=== PATIENT | female | born 1935 | race Caucasian/White ===

== ENCOUNTER 2016-12-07 19:01 | Inpatient (IN) | payer MEDICARE, BC ==
[2016-12-07] MEDS ORDERED: SODIUM CHLORIDE 0.9% 1,000 ML IV SCH (22:30)
[2016-12-07 22:53] LABS: Basophils % (A) 0 %; CH 26.7; CHCM 31.2; Eosinophils % (A) 0 %; HCT 29.9 % (34.0-46.0); HDW 2.43; HGB 9.4 gm/dL (11.4-16.0); Hypochromasia Slight; Luc # (Auto) 0.15; Luc % (Auto) 2; Lymphocytes % (A) 10 %; MCH 26.9 pg (25.0-35.0); MCHC 31.3 g/dL (31.0-37.0); Monocytes # (A) 0.5 k/uL (0-1.0); Monocytes % (A) 4 %; Neutrophils # (A) 8.6 k/uL (1.3-7.7); Neutrophils % (A) 84 %; RBC 3.48 m/uL (3.80-5.40); RDW 15.4 % (11.5-15.5); WBC 10.3 k/uL (3.8-10.6); WBC (Perox) 10.09
[2016-12-07] MEDS ORDERED: ALPRAZolam 0.25 MG TAB PO PRN (22:54)
[2016-12-07] MEDS ORDERED: NALOXONE 0.4 MG/ML 1 ML VIAL IV PRN (22:54)
[2016-12-07] MEDS ORDERED: HYDROcodone/APAP 5-325MG 1 EACH TAB PO PRN (22:54)
[2016-12-07] MEDS ORDERED: HYDROmorphone 1 MG/ML 1 ML SYRINGE IVP PRN (22:55)
[2016-12-07] MEDS ORDERED: cloNIDine HCL 0.1 MG TAB PO PRN (22:57)
[2016-12-07] MEDS ORDERED: hydrALAZINE HCL 20 MG/ML 1 ML VIAL IVP PRN (22:57)
[2016-12-07 23:02] LABS: ALT 20 U/L (9-52); AST 20 U/L (14-36); Alkaline Phosphatase 56 U/L (38-126); Anion Gap 10 mmol/L; Blood Urea Nitrogen 13 mg/dL (7-17); Calcium 8.4 mg/dL (8.4-10.2); Carbon Dioxide 17 mmol/L (22-30); Chloride 102 mmol/L (98-107); Glucose 90 mg/dL (74-99); Non-African American GFR(MDRD) >60 (>60 ml/min/1.73 sqM); Potassium 3.6 mmol/L (3.5-5.1); Sodium 129 mmol/L (137-145); Total Bilirubin 1.3 mg/dL (0.2-1.3); Total Protein 5.3 g/dL (6.3-8.2)
[2016-12-07] MEDS ORDERED: SODIUM CHLORIDE 0.9% 500 ML IV ONE (23:17)
[2016-12-07] MEDS ORDERED: ACETAMINOPHEN TAB 325 MG TAB PO PRN (23:39)
[2016-12-07] MEDS: METOPROLOL TARTRATE 50 MG TAB PO SCH (23:45)
[2016-12-07] MEDS: SODIUM CHLORIDE 0.9% 1,000 ML IV SCH (23:46)
[2016-12-07] MEDS: amLODIPine 5 MG TAB PO SCH (23:46)
[2016-12-07] MEDS: MELATONIN 3 MG TABLET PO SCH (23:47)
[2016-12-08 08:13] LABS: Basophils % (A) 0 %; CH 26.4; CHCM 31.4; Eosinophils % (A) 0 %; HCT 27.7 % (34.0-46.0); HDW 2.56; Hypochromasia Slight; Luc # (Auto) 0.12; Luc % (Auto) 1; Lymphocytes # (A) 0.7 k/uL (1.0-4.8); Lymphocytes % (A) 7 %; MCH 27.4 pg (25.0-35.0); MCHC 32.4 g/dL (31.0-37.0); MCV 84.4 fL (80.0-100.0); Mean Platelet Volume 7.8; Monocytes # (A) 0.4 k/uL (0-1.0); Monocytes % (A) 4 %; Neutrophils # (A) 8.7 k/uL (1.3-7.7); Neutrophils % (A) 88 %; RBC 3.29 m/uL (3.80-5.40); RDW 15.6 % (11.5-15.5); WBC 9.8 k/uL (3.8-10.6); WBC (Perox) 10.43
[2016-12-08 08:29] LABS: Anion Gap 8 mmol/L; Blood Urea Nitrogen 13 mg/dL (7-17); Calcium 8.6 mg/dL (8.4-10.2); Carbon Dioxide 19 mmol/L (22-30); Chloride 107 mmol/L (98-107); Glucose 85 mg/dL (74-99); Non-African American GFR(MDRD) >60 (>60 ml/min/1.73 sqM); Potassium 3.6 mmol/L (3.5-5.1); Sodium 134 mmol/L (137-145)
[2016-12-08] MEDS: amLODIPine 5 MG TAB PO SCH (09:21)
[2016-12-08] MEDS: HEPARIN SODIUM,PORCINE 5,000 UNIT/ML 1 ML VIAL SQ SCH ×2 (09:21→21:57)
[2016-12-08] MEDS: METOPROLOL TARTRATE 50 MG TAB PO SCH ×2 (09:21→22:01)
[2016-12-08] MEDS: PANTOPRAZOLE 40 MG/10 ML VIAL IV SCH (09:22)
[2016-12-08] MEDS: SODIUM CHLORIDE 0.9% 1,000 ML IV SCH (09:22)
[2016-12-08] MEDS ORDERED: POLYETHYLENE GLYCOL LYTES SOLN 4,000 ML SOLN.RECON PO ONE (12:11)
[2016-12-08] MEDS ORDERED: SODIUM CHLORIDE 0.9% 1,000 ML with POTASSIUM CHLORIDE 20 MEQ IV SCH ×2 (12:15)
--- NOTE | 2016-12-08 12:33 | P.GSCN ---
History of Present Illness Consult date: 12/08/16 Reason for Consult: Abdominal pain Requesting physician: Amaya Adams History of present illness: 80 yrs old female presents with abdominal pain RLQ 4 days , weight loss, loss of appetite. No prior colonoscopy. Prior history of open cholecystectomy. Lives my herself. Smokes 2-3 cigarettes/day. Last BM [address] Scan abd/pelvis at [facility] - Large cecal mass vs inflammation. Enlarged lymph nodes Patient is functional. She does have dementia with short term memory loss. Patient's daughter at bedside during consultation and discussion. Review of Systems Constitutional: Denies fever, has weight loss and loss of appetite HEENT: No difficulty in vision or hearing. Denies dysphagia. Cardiovascular: Denies chest pain, palpitations, dizziness, shortness of breath. Respiratory: No cough or SOBl. Integumentary: No skin ulcers. Genitourinary: No urinary incontinence, hematuria or dysuria Neurologic: No seizures, denies weakness in upper or lower extremities. Has dementia Musculoskeletal: Occasional knee pain. Psychiatry: Known history of depression, no suicidal ideation, no anxiety or psychosis Past Medical History Past Medical History: Hypertension Additional Past Medical History / Comment(s): smoker, right shoulder surgery r/ t fx. has hardware in right shoulder History of Any Multi-Drug Resistant Organisms: None Reported Additional Past Surgical History / Comment(s): cateract sx kirt Past Anesthesia/Blood Transfusion Reactions: No Reported Reaction Past Psychological History: No Psychological Hx Reported Smoking Status: Current some day smoker Medications and Allergies Home Medications Medication Instructions Recorded Confirmed Type Metoprolol Tartrate [Lopressor] 100 mg PO BID 12/07/16 12/08/16 History amLODIPine [Norvasc] 5 mg PO BID 12/07/16 12/08/16 History Allergies Allergy/AdvReac Type Severity Reaction Status Date / Time Penicillins Allergy Rash/Hives Verified 12/08/16 11:21 Surgical - Exam Vital Signs Temp Pulse Resp BP Pulse Ox 98.6 F 114 H 20 97/52 95 12/07/16 21:04 12/07/16 21:04 12/07/16 21:04 12/07/16 21:04 12/07/16 21:04 General: Patient is alert and oriented to time, place and person and cooperative with exam. HEENT: No pallor, no icterus, no thyroid enlargement, no cervical lymphadenopathy. Chest: Bilateral equal breath sounds present. No wheezes, no crackles. Cardiovascular: Regular rate and rhythm. Abdomen: Soft, nontender, nondistended. Right subcostal incision is well healed. Integumentary: No active ulcers or discharge. Neurologic: Cranial nerves II-XII intact. Strength upper and lower extremities 5/5. No focal neurologic deficits. Gait is normal. Psychiatric: No anxiety or psychosis. Results - Labs 12/11/16 06:46 12/10/16 07:02 Abnormal Lab Results - Last 24 Hours (Table) 12/07/16 12/07/16 12/08/16 Range/Units 22:38 22:38 07:36 RBC 3.48 L 3.29 L (3.80-5.40) m/uL Hgb 9.4 L 9.0 L (11.4-16.0) gm/dL Hct 29.9 L 27.7 L (34.0-46.0) % RDW 15.6 H (11.5-15.5) % Neutrophils # 8.6 H 8.7 H (1.3-7.7) k/uL Lymphocytes # 0.7 L (1.0-4.8) k/uL Sodium 129 L (137-145) mmol/L Carbon Dioxide 17 L (22-30) mmol/L Total Protein 5.3 L (6.3-8.2) g/dL Albumin 2.5 L (3.5-5.0) g/dL 12/08/16 Range/Units 07:36 RBC (3.80-5.40) m/uL Hgb (11.4-16.0) gm/dL Hct (34.0-46.0) % RDW (11.5-15.5) % Neutrophils # (1.3-7.7) k/uL Lymphocytes # (1.0-4.8) k/uL Sodium 134 L (137-145) mmol/L Carbon Dioxide 19 L (22-30) mmol/L Total Protein (6.3-8.2) g/dL Albumin (3.5-5.0) g/dL Diabetes panel 12/07/16 12/08/16 Range/Units 22:38 07:36 Sodium 129 L 134 L (137-145) mmol/L Potassium 3.6 3.6 (3.5-5.1) mmol/L Chloride 102 107 (98-107) mmol/L Carbon Dioxide 17 L 19 L (22-30) mmol/L BUN 13 13 (7-17) mg/dL Creatinine 0.90 0.80 (0.52-1.04) mg/dL Glucose 90 85 (74-99) mg/dL Calcium 8.4 8.6 (8.4-10.2) mg/dL AST 20 (14-36) U/L ALT 20 (9-52) U/L Alkaline Phosphatase 56 (38-126) U/L Total Protein 5.3 L (6.3-8.2) g/dL Albumin 2.5 L (3.5-5.0) g/dL Calcium panel 12/07/16 12/08/16 Range/Units 22:38 07:36 Calcium 8.4 8.6 (8.4-10.2) mg/dL Albumin 2.5 L (3.5-5.0) g/dL Pituitary panel 12/07/16 12/08/16 Range/Units 22:38 07:36 Sodium 129 L 134 L (137-145) mmol/L Potassium 3.6 3.6 (3.5-5.1) mmol/L Chloride 102 107 (98-107) mmol/L Carbon Dioxide 17 L 19 L (22-30) mmol/L BUN 13 13 (7-17) mg/dL Creatinine 0.90 0.80 (0.52-1.04) mg/dL Glucose 90 85 (74-99) mg/dL Calcium 8.4 8.6 (8.4-10.2) mg/dL Adrenal panel 12/07/16 12/08/16 Range/Units 22:38 07:36 Sodium 129 L 134 L (137-145) mmol/L Potassium 3.6 3.6 (3.5-5.1) mmol/L Chloride 102 107 (98-107) mmol/L Carbon Dioxide 17 L 19 L (22-30) mmol/L BUN 13 13 (7-17) mg/dL Creatinine 0.90 0.80 (0.52-1.04) mg/dL Glucose 90 85 (74-99) mg/dL Calcium 8.4 8.6 (8.4-10.2) mg/dL Total Bilirubin 1.3 (0.2-1.3) mg/dL AST 20 (14-36) U/L ALT 20 (9-52) U/L Alkaline Phosphatase 56 (38-126) U/L Total Protein 5.3 L (6.3-8.2) g/dL Albumin 2.5 L (3.5-5.0) g/dL Assessment and Plan (1) Cecum mass Status: Acute (2) Anemia Status: Acute (3) Hypertension Status: Acute Plan: 1. 80 yr old female with cecal mass and anemia 2. Plan for colonoscopy in am with biopsy. Nultyley prep 3. Check CEA, PT. PTT and INR 4. Cardiology consult for presurgical risk assessment 5. 2D Echo 6. Incentive spirometry 7. Quit smoking 8. Ambulate in hallways 9. Chest Xray 10. Discussed in detail about right hemicolectomy as outpatient. The risks, benefits and potential complications including bleeding, infection, anastomotic leak, DVT were discussed. Patient agreed to proceed with laparoscopic right hemicolectomy possible open.The possibillity of ostomy also discussed. 11. Instructions given regarding enhance recovery protocol. Daughter will pick up driver enhanced recovery package from [place] [employer].
[2016-12-08] MEDS: 0.9% NACL WITH KCL 20 MEQ/L 1,000 ML IV SCH (13:30)
[2016-12-08] MEDS: metroNIDAZOLE-NS PMX 500 MG in SALINE 1 100ML.BAG IVPB SCH ×2 (13:40→23:30)
[2016-12-08] MEDS: LEVOFLOXACIN 500MG-D5W PMX 500 MG in DEXTROSE/WATER 1 100ML.BAG IVPB SCH (16:24)
--- NOTE | 2016-12-08 16:29 | XR ---
EXAMINATION TYPE: XR chest 1V DATE OF EXAM: 12/08/2016 HISTORY: Shortness of breath. COMPARISON: None. TECHNIQUE: Single view of the chest is submitted. FINDINGS: Demonstrated are scattered senescent parenchymal change. There is no evidence for focal infiltrate. The heart is stable. Hilar and mediastinal structures are within normal limits. Degenerative changes are seen of the dorsal spine. IMPRESSION: 1. Chronic changes without evidence for acute pulmonary disease.
--- NOTE | 2016-12-08 18:28 | ECHOF ---
Referral Reason:PREOP MEASUREMENTS -------- HEIGHT: 170.2 cm WEIGHT: 52.2 kg BP: IVSd: 1.0 cm (0.6 - 1.1) LVIDd: 3.9 cm (3.9 - 5.3) LVPWd: 1.0 cm (0.6 - 1.1) IVSs: 1.6 cm LVIDs: 1.7 cm LVPWs: 1.3 cm Ao Diam: 3.0 cm (2.0 - 3.7) AV Cusp: 1.6 cm (1.5 - 2.6) LA Diam: 3.1 cm (2.7 - 3.8) MV EXCURSION: 14.924 mm (> 18.000) MV EF SLOPE: 81 mm/s (70 - 150) EPSS: 0.8 cm MV E Eliezer: 0.84 m/s MV DecT: 216 ms MV A Eliezer: 0.93 m/s MV E/A Ratio: 0.91 RAP: 5.00 mmHg RVSP: 22.57 mmHg FINDINGS -------- Sinus rhythm. This was a technically good study. Left ventricular wall thickness is normal. Overall left ventricular systolic function is normal with, an EF between 55 - 60 %. The right ventricle is normal in size and function. The left atrium is normal in size. The right atrium is normal in size. Aortic valve is trileaflet and is mildly thickened. The mitral valve leaflets are mildly thickened. Mild mitral regurgitation is present. Mild tricuspid regurgitation present. The right ventricular systolic pressure, as measured by Doppler, is 22.57mmHg. Pulmonic valve appears structurally normal. The aortic root size is normal. The pericardium is normal. CONCLUSIONS -------- 1. Sinus rhythm. 2. Mild mitral regurgitation is present. 3. Mild tricuspid regurgitation present. 4. The right ventricular systolic pressure, as measured by Doppler, is 22.57mmHg. 5. Pulmonic valve appears structurally normal. 6. The aortic root size is normal. 7. The pericardium is normal. 8. This was a technically good study. 9. Left ventricular wall thickness is normal. 10. Overall left ventricular systolic function is normal with, an EF between 55 - 60 %. 11. The right ventricle is normal in size and function. 12. The left atrium is normal in size. 13. The right atrium is normal in size. 14. Aortic valve is trileaflet and is mildly thickened. 15. The mitral valve leaflets are mildly thickened. BARK SCALER: Libby Melo RDCS
--- NOTE | 2016-12-08 18:43 | P.CRDCN ---
History of Present Illness Consult date: 12/08/16 History of present illness: This 80-year-old female is diagnosed to have cecal mass and is going to have colonoscopy and possible surgical intervention. We're asked to provide preoperative evaluation and clearance. Patient denies any chest pain or shortness of breath. She doesn't have any history of previous MD or strokes. Patient is known to have hypertension and been treated with Lopressor and Norvasc. Patient also is a smoker. No history of diabetes. At the time of my examination patient doesn't seem to be in acute distress. Given her risk factor of age, it's possible that patient may have underlying ischemic heart disease. However, there are no overt signs of CHF or findings of angina. Patient is being cleared for surgery with the above average risk. I do not see any absolute contraindication. Her echo Cardigan showed preserved LV function. EKG is being obtained Review of Systems REVIEW OF SYSTEMS: CONSTITUTIONAL:. Patient is doing well. No complaints of fever or chills EYES: Denies diplopia, blurring of vision EARS, NOSE, MOUTH, THROAT: Denies headaches, denies sore throat. CARDIOVASCULAR: Denies chest pain, denies shortness of breath, denies palpitations RESPIRATORY: Denies shortness of breath, denies cough. GASTROINTESTINAL: Abdominal pain, constipation GENITOURINARY: Denies hematuria, denies infections. MUSKULOSKELETAL: Denies pain, denies swelling. Denies any cramps or claudication INTEGUMENTARY: Denies rash, denies eczema. NEUROLOGICAL: Denies focal weakness, or visual disturbance. Denies any dizziness or syncope PSYCHIATRIC: Denies anxiety, denies depression. HEMATOLOGIC/LYMPHATIC: Denies any bleeding, denies enlarged lymph nodes. Past Medical History Past Medical History: Hypertension Additional Past Medical History / Comment(s): smoker, right shoulder surgery r/ t fx. has hardware in right shoulder History of Any Multi-Drug Resistant Organisms: None Reported Additional Past Surgical History / Comment(s): cateract sx kirt Past Anesthesia/Blood Transfusion Reactions: No Reported Reaction Past Psychological History: No Psychological Hx Reported Smoking Status: Current some day smoker Medications and Allergies Home Medications Medication Instructions Recorded Confirmed Type Metoprolol Tartrate [Lopressor] 100 mg PO BID 12/07/16 12/08/16 History amLODIPine [Norvasc] 5 mg PO BID 12/07/16 12/08/16 History Allergies Allergy/AdvReac Type Severity Reaction Status Date / Time Penicillins Allergy Rash/Hives Verified 12/08/16 11:21 Physical Exam Vitals: Vital Signs Temp Pulse Resp BP Pulse Ox 12/08/16 15:00 96.7 F L 88 16 134/68 96 12/08/16 08:00 110 H 12/08/16 07:00 98.1 F 112 H 16 114/53 97 12/08/16 06:22 112/54 12/08/16 00:57 109 H 107/54 12/07/16 23:00 100.1 F H 113 H 20 92/42 94 L 12/07/16 21:04 98.6 F 114 H 20 97/52 95 Intake and Output 12/08/16 12/08/16 12/08/16 06:59 14:59 22:59 Intake Total 0 800 Balance 0 800 Intake: Intake, IV Titration 800 Amount Sodium Chloride 0.9% 1, 800 000 ml @ 100 mls/hr IV . Q10H6M LIBAN with Potassium Chloride 20 meq Rx#: [id number] Oral 0 Other: Voiding Method Bedside Commode Bedside Commode # Voids 2 3 3 # Bowel Movements 2 2 GENERAL EXAM: Patient is alert and oriented and doesn't appear to be in any acute distress HEENT: Normocephalic. Normal reaction of pupils, equal size, normal range of extraocular motion. No erythema or exudates in the throat. NECK: No masses, no nuchal rigidity. CHEST: No chest wall deformity. LUNGS: Equal air entry with no crackles or wheeze. HEART: S1 and S2 normal with no audible mumurs or gallops. Regular rhythm, femorals equal on both sides.. ABDOMEN: No hepatosplenomegaly, normal bowel sounds, no guarding or rigidity. SKIN: No rashes CENTRAL NERVOUS SYSTEM: No focal deficits. EXTREMITIES: No cyanosis, clubbing or edema. Results 12/08/16 07:36 12/08/16 07:36 Cardiac Enzymes 12/07/16 Range/Units 22:38 AST 20 (14-36) U/L CBC 12/07/16 12/08/16 Range/Units 22:38 07:36 WBC 10.3 9.8 (3.8-10.6) k/uL RBC 3.48 L 3.29 L (3.80-5.40) m/uL Hgb 9.4 L 9.0 L (11.4-16.0) gm/dL Hct 29.9 L 27.7 L (34.0-46.0) % Plt Count 152 159 (150-450) k/uL Comprehensive Metabolic Panel 12/07/16 12/08/16 Range/Units 22:38 07:36 Sodium 129 L 134 L (137-145) mmol/L Potassium 3.6 3.6 (3.5-5.1) mmol/L Chloride 102 107 (98-107) mmol/L Carbon Dioxide 17 L 19 L (22-30) mmol/L BUN 13 13 (7-17) mg/dL Creatinine 0.90 0.80 (0.52-1.04) mg/dL Glucose 90 85 (74-99) mg/dL Calcium 8.4 8.6 (8.4-10.2) mg/dL AST 20 (14-36) U/L ALT 20 (9-52) U/L Alkaline Phosphatase 56 (38-126) U/L Total Protein 5.3 L (6.3-8.2) g/dL Albumin 2.5 L (3.5-5.0) g/dL Current Medications Generic Name Dose Route Start Last Admin Trade Name Freq PRN Reason Stop Dose Admin Acetaminophen 650 mg 12/07/16 23:39 Tylenol Tab PO Q4HR PRN Fever and/ or MILD Pain Heparin Sodium (Porcine) 5,000 unit 12/08/16 09:00 12/08/16 09:21 Heparin SQ 5,000 unit Q12HR LIBAN Administration Levofloxacin 500 mg/ IV 100 mls @ 100 mls/hr 12/08/16 17:00 12/08/16 16:24 Solution IVPB 100 mls/hr Q24H LIBAN Administration Potassium Chloride/Sodium Chloride 1,000 mls @ 100 mls/hr 12/08/16 12:30 07/26 13:30 Ns-Kcl 20 Meq/L Iv Solution IV 100 mls/hr .Q10H LIBAN Administration Metronidazole 500 mg/ IV 100 mls @ 100 mls/hr 12/08/16 14:00 12/08/16 13:40 Solution IVPB 100 mls/hr Q8HR LIBAN Administration Melatonin 3 mg 12/07/16 23:00 07/01/17 23:47 Melatonin PO Not Given HS LIBAN Metoprolol Tartrate 100 mg 12/07/16 23:00 12/08/16 09:21 Lopressor PO 100 mg BID LIBAN Administration Naloxone HCl 0.2 mg 12/07/16 22:54 Narcan IV Q2M PRN Opioid Reversal Pantoprazole Sodium 40 mg 12/08/16 09:00 12/08/16 09:22 Protonix IV 40 mg DAILY LIBAN Administration Intake and Output 12/08/16 12/08/16 12/08/16 06:59 14:59 22:59 Intake Total 0 800 Balance 0 800 Intake: Intake, IV Titration 800 Amount Sodium Chloride 0.9% 1, 800 000 ml @ 100 mls/hr IV . Q10H6M LIBAN with Potassium Chloride 20 meq Rx#: [id number] Oral 0 Other: Voiding Method Bedside Commode Bedside Commode # Voids 2 3 3 # Bowel Movements 2 2 12/08/16 07:36 12/08/16 07:36 Assessment and Plan (1) Pre-op evaluation Status: Acute (2) Anemia Status: Acute (3) Cecum mass Status: Acute (4) Hypertension Status: Acute Plan: Patient is clinically stable without any overt angina or CHF. Patient does have risk factors of smoking and hypertension and underlying ischemic heart disease cannot be entirely excluded. Her LV function is preserved. Patient is being cleared for surgery with the above average risk. Beta jesus should be continued in the perioperative period. Thank you again for letting us participate in the care of this patient
[2016-12-08] MEDS: MELATONIN 3 MG TABLET PO SCH (21:58)
[2016-12-09] MEDS: 0.9% NACL WITH KCL 20 MEQ/L 1,000 ML IV SCH ×3 (02:36→18:09)
[2016-12-09 07:30] LABS: Basophils % (A) 0 %; CH 26.5; CHCM 31.2; Eosinophils % (A) 0 %; HCT 27.8 % (34.0-46.0); HDW 2.63; Hypochromasia Slight; Luc # (Auto) 0.09; Luc % (Auto) 1; Lymphocytes # (A) 0.6 k/uL (1.0-4.8); Lymphocytes % (A) 8 %; MCH 27.7 pg (25.0-35.0); MCHC 32.4 g/dL (31.0-37.0); MCV 85.3 fL (80.0-100.0); Mean Platelet Volume 7.8; Monocytes # (A) 0.3 k/uL (0-1.0); Monocytes % (A) 4 %; Neutrophils # (A) 6.5 k/uL (1.3-7.7); Neutrophils % (A) 87 %; RBC 3.26 m/uL (3.80-5.40); RDW 15.3 % (11.5-15.5); WBC 7.5 k/uL (3.8-10.6); WBC (Perox) 7.79
[2016-12-09] MEDS ORDERED: IV FLUID CONTINUATION 600 ML IV ONE (07:30)
[2016-12-09] MEDS ORDERED: PROPOFOL 10 MG/ML 20 ML VIAL IV ONE (07:36)
[2016-12-09 07:37] LABS: INR 1.2 (<1.1); Partial Thromboplastin Time 28.8 sec (22.0-30.0); Prothrombin Time 11.7 sec (9.0-12.0)
[2016-12-09 07:42] LABS: ALT 18 U/L (9-52); AST 20 U/L (14-36); Alkaline Phosphatase 64 U/L (38-126); Anion Gap 11 mmol/L; Blood Urea Nitrogen 12 mg/dL (7-17); Calcium 8.4 mg/dL (8.4-10.2); Carbon Dioxide 18 mmol/L (22-30); Chloride 111 mmol/L (98-107); Glucose 75 mg/dL (74-99); Non-African American GFR(MDRD) >60 (>60 ml/min/1.73 sqM); Potassium 3.7 mmol/L (3.5-5.1); Sodium 140 mmol/L (137-145); Total Bilirubin 0.5 mg/dL (0.2-1.3); Total Protein 5.2 g/dL (6.3-8.2)
--- NOTE | 2016-12-09 08:50 | P.OP ---
Date of Procedure: 12/09/16 Preoperative Diagnosis: Cecal mass Postoperative Diagnosis: Large circumferential cecal mass Cluster of Four >1 cm polyps in the ascending colon Distal ascending colon polyp Transverse colon polyp Descending colon polyp Rectal polyps Sigmoid diverticulosis Procedure(s) Performed: Colonoscopy with polypectomy using cold biopsy forceps Tattoing of the cecal mass and aaascending colon polyp with felecia ink Implants: Anesthesia: MAC Surgeon: Catina Bonner Pathology: other Condition: stable Disposition: PACU Indications for Procedure: Operative Findings: Large circumferential cecal mass Cluster of Four >1 cm polyps in the ascending colon Distal ascending colon polyp Transverse colon polyp Descending colon polyp Rectal polyps Sigmoid diverticulosis Description of Procedure: The patient was brought to the endoscopy suite and placed in lateral decubitus position. IV sedation was given as per anesthesia team. Patient was on continuous vitals and pulse oximetry monitoring throughout the procedure. A timeout was performed to verify correct patient and correct procedure. Perianal examination did not show any external hemorrhoids. Digital rectal examination was performed. No masses or gross blood. A well-lubricated Olympus colonoscope was passed per rectally and was gradually advanced beyond the sigmoid colon, splenic flexure, transverse colon, hepatic flexure and cecum. Large circumferential friable cecal mass identified which was biopsied at multiple sites. The area was tattoed with felecia ink . In the ascending colon, there were cluster of four polyps and the most distal one was biopsied and the base was tattoed with Felecia ink. The colonoscope was gradually withdrawn inspecting all the mucosal surfaces. Bowel prep was good. There were more polyps identified in transverse colon, descending colon and rectum which were all biopsied using cold biopsy forceps. Sigmoid diverticulosis noted without any evidence of acute diverticulitis. The scope was gradually withdrawn and retroflexed in the rectum . Total withdrawal time was greater than 15 minutes . Patient tolerated the procedure well and was taken to post anesthesia care unit in stable condition. Final Pathologic Diagnosis A. COLON, CECUM, BIOPSY: ADENOCARCINOMA. B. COLON, DISTAL ASCENDING, BIOPSY: ADENOMA. C. COLON, PROXIMAL ASCENDING, BIOPSY: ADENOMA. D. COLON, HEPATIC FLEXURE, BIOPSY: ADENOMA. E. COLON, TRANSVERSE, BIOPSY: SERRATED POLYP FAVOR SERRATED ADENOMA. F. COLON, DESCENDING, BIOPSY: MATURE BENIGN COLONIC MUCOSA WITH A NORMAL CRYPT ARCHITECTURE. G. RECTUM, BIOPSY: SERRATED POLYP; THE DIFFERENTIAL INCLUDES HYPERPLASTIC POLYP AND SERRATED ADENOMA.
[2016-12-09] MEDS: METOPROLOL TARTRATE 50 MG TAB PO SCH ×2 (09:29→21:20)
[2016-12-09] MEDS: metroNIDAZOLE-NS PMX 500 MG in SALINE 1 100ML.BAG IVPB SCH ×3 (10:05→22:59)
[2016-12-09] MEDS: HEPARIN SODIUM,PORCINE 5,000 UNIT/ML 1 ML VIAL SQ SCH ×2 (10:05→21:20)
[2016-12-09] MEDS: PANTOPRAZOLE 40 MG/10 ML VIAL IV SCH (10:05)
[2016-12-09 11:03] VITALS: BMI 18.0
[2016-12-09] MEDS ORDERED: metroNIDAZOLE-NS PMX 500 MG in SALINE 1 100ML.BAG IVPB SCH (12:00)
--- NOTE | 2016-12-09 12:24 | P.CONS ---
History of Present Illness - Reason for Consult Consult date: 12/09/16 Colon mass and multiple polyps - History of Present Illness The patient is an 80-year-old lady with overall well controlled medical problems. The patient states that she's been having discomfort off and on in the right lower abdomen for a few months. However previously this was not very significant and intermittent. Over the last 4-5 days, pain had become progressively severe and persistent. She went in to [facility], and had a computed tomography scan of the abdomen and pelvis done. The initial study was noncontrast, but did show what appeared to be a large mass, about 9.5 cm in largest dimension, in the area of the cecum with the enlarged surrounding lymph nodes. She apparently had another CAT scan done according to the family where she had to drink contrast. Those results are not available to us.. The patient was subsequently transferred here for further evaluation and management. She had a colonoscopy this morning by Dr. Bonner. Confirm the presence of a large cecal mass which was highly suspicious for cancer. This did not appear to be obstructing. In addition the patient was found to have multiple polyps, mostly in the ascending colon, but also in the transverse and descending colon. Oncology consult was therefore placed for further evaluation and recommendations. The patient states that she has never had a colonoscopy before. There is no family history of colorectal cancer. Her mother did have breast cancer at age 75. Review of Systems Constitutional: Reports chronic pain, Reports poor appetite, Reports weight loss Eyes: denies blurred vision, denies pain Ears: deny: decreased hearing, ear discharge, earache, tinnitus Ears, nose, mouth and throat: Denies headache, Denies sore throat Cardiovascular: Reports decreased exercise tolerance Respiratory: Denies cough Gastrointestinal: Reports abdominal pain Genitourinary: Denies dysuria, Denies hematuria Menstruation: Reports postmenopausal Musculoskeletal: Denies myalgias Integumentary: Denies pruritus, Denies rash Neurological: Denies numbness, Denies weakness Psychiatric: Denies anxiety, Denies depression Endocrine: Denies fatigue, Denies weight change Hematologic/Lymphatic: Reports as per HPI Past Medical History Past Medical History: Hypertension Additional Past Medical History / Comment(s): smoker, right shoulder surgery r/ t fx. has hardware in right shoulder History of Any Multi-Drug Resistant Organisms: None Reported Additional Past Surgical History / Comment(s): cateract sx kirt Past Anesthesia/Blood Transfusion Reactions: No Reported Reaction Past Psychological History: No Psychological Hx Reported Smoking Status: Current some day smoker Medications and Allergies Home Medications Medication Instructions Recorded Confirmed Type Metoprolol Tartrate [Lopressor] 100 mg PO BID 12/07/16 12/08/16 History amLODIPine [Norvasc] 5 mg PO BID 12/07/16 12/08/16 History Allergies Allergy/AdvReac Type Severity Reaction Status Date / Time Penicillins Allergy Rash/Hives Verified 12/08/16 11:21 Physical Exam Vitals: Vital Signs Temp Pulse Resp BP Pulse Ox 12/09/16 07:24 98 F 85 18 109/58 12/09/16 07:00 95 12/08/16 22:53 97.8 F 92 18 107/61 95 12/08/16 15:00 96.7 F L 88 16 134/68 96 Intake and Output 12/08/16 12/09/16 12/09/16 22:59 06:59 14:59 Intake Total 100 Balance 100 Intake: IV 100 Other: Voiding Method Bedside Commode # Voids 2 4 # Bowel Movements 2 Weight 52.163 kg Patient Weight 12/10/16 06:59 Weight 52.163 kg - Constitutional General appearance: no acute distress - EENT Eyes: EOMI, PERRLA ENT: hearing grossly normal, normal oropharynx - Neck Neck: no lymphadenopathy Thyroid: bilateral: normal size - Respiratory Respiratory: bilateral: CTA - Cardiovascular Rhythm: regular Heart sounds: normal: S1, S2 - Gastrointestinal General gastrointestinal: soft Localized gastrointestinal: tender: RLQ - Integumentary Integumentary: normal - Neurologic Neurologic: CNII-XII intact - Musculoskeletal Musculoskeletal: strength equal bilaterally - Psychiatric Psychiatric: A&O x's 3, appropriate affect Results CBC & Chem 7: 12/09/16 07:12 12/09/16 07:12 Labs: Abnormal Lab Results - Last 24 Hours (Table) 12/09/16 12/09/16 12/09/16 Range/Units 07:12 07:12 07:12 RBC 3.26 L (3.80-5.40) m/uL Hgb 9.0 L (11.4-16.0) gm/dL Hct 27.8 L (34.0-46.0) % Lymphocytes # 0.6 L (1.0-4.8) k/uL Chloride 111 H (98-107) mmol/L Carbon Dioxide 18 L (22-30) mmol/L Total Protein 5.2 L (6.3-8.2) g/dL Albumin 2.3 L (3.5-5.0) g/dL Prealbumin <3 L (18-36) mg/dL Carcinoembryonic Ag 115.0 H (0.0-5.0) ng/mL Microbiology - Last 24 Hours (Table) 12/08/16 00:15 Blood Culture - Preliminary Blood No Growth after 24 hours 12/07/16 23:52 Blood Culture - Preliminary Blood No Growth after 24 hours 12/08/16 14:10 Urine Culture - Preliminary Urine,Clean Catch Comments: Echocardiogram report reviewed. No significant abnormality Chest x-ray: report reviewed CT scan - abdomen: report reviewed CT scan - pelvis: report reviewed Assessment and Plan (1) Cecum mass Narrative/Plan: This is highly suspicious for malignancy. Pathology is awaited. This appears to be nonobstructing. We will need to ensure that the patient has been adequately staged. The initial computed tomography scan that was done at [facility] was on noncontrast. She did have a second scan done where she apparently had oral contrast. However it is not known if IV contrast was utilized or not. The report of the scan has not been transcribed yet. [facility] was contacted, and they will send us a report as soon as that is available. That report will be reviewed. Even if this is a negative, an IV contrast scan will be required for adequate staging of the liver, if that has not been done Status: Acute (2) Colon polyps Narrative/Plan: The patient was found to have multiple polyps, most in the ascending colon. These will be removed anyway, and the patient has a right colectomy. However she was also noted to have polyps in the transverse and descending colon . I would recommend waiting on the pathology. If the transverse and descending colon polyps are not malignant, then the patient can have a hemicolectomy, followed by close colonoscopic surveillance in the future. Given the number of polyps in the patient's age, it is extremely unlikely that she has FAP. Even in patients with known Martins syndrome, total colectomy is not recommended as prophylaxis . Rather close colonoscopic surveillance is the standard of care. Martins syndrome testing can be done as an outpatient. The patient's children are all up-to-date with their colonoscopies. Status: Acute (3) Anemia Narrative/Plan: This most likely is due to blood loss related to the tumor. There is no evidence of any uncontrolled bleeding, and blood loss is most likely slowing chronic. I will check iron studies and the patient may require iron supplementation going forward. Hemo globin is currently in a safe range Status: Acute Plan: Above recommendations were discussed with the surgical service
--- NOTE | 2016-12-09 14:40 | P.DS ---
Providers Date of admission: 12/07/16 20:39 Expected date of discharge: 12/11/16 Attending physician: Amaya Adams Consults: 12/07/16 22:57 Consult Physician Routine Consulting Provider: Venkatesh Upton Consult Reason/Comments: colonic lesion? Do you want consulting provider notified?: Yes, Notify in am 12/07/16 23:37 Consult Physician Routine Consulting Provider: Catina Bonner Consult Reason/Comments: abd pain Do you want consulting provider notified?: Yes, Notify in am 12/08/16 12:09 Consult Physician Urgent Consulting Provider: Alexey Prado Consult Reason/Comments: cardiac risk assessment for colonoscopy and colectomy, tachycardia Do you want consulting provider notified?: Yes 12/09/16 08:50 Consult Physician Routine Consulting Provider: Tani Noel Consult Reason/Comments: cecal mass, multiple colon polyps Do you want consulting provider notified?: Yes Primary care physician: Arsenio Ashraf Hospital Course: Final Diagnoses: 1. Cecal mass,status post colonoscopy, suspicious of malignancy, pathology pending 2. Acute blood loss Anemia, suspect tumor related. Iron studies pending. 3. Hypertension Hospital course: This is an 80-year-old female admitted with right lower quadrant abdominal pain, weight loss, no bowel movement 2 days with history of ongoing nicotine dependence, no prior colonoscopy, and multiple other medical issues. [facility] abdomen/pelvis CT reportedly large cecal mass/inflammation with enlarged surrounding lymph nodes. Evaluated by oncology,surgery, cardiology. Underwent colonoscopy, confirming a large cecal mass, nonobstructive appearance, highly suspicious of cancer. Multiple polyps also found, majority in the ascending colon. Biopsies obtained/pathology pending. Cleared by both surgery and oncology. Patient is being discharged to [facility] in a stable condition with guarded prognosis. Further outpatient recommendations pending from both surgery and oncology regarding pathology. Please refer to separate discharge med list per Dr. Adams. The impression and plan of care has been dictated as directed. : I performed a H&P examination of this patient and discussed the same with the dictator. I agree with the dictator's note. Any additional findings/opinions/ etc. will be noted. Patient Condition at Discharge: Stable Plan - Discharge Summary New Discharge Prescriptions: No Action amLODIPine [Norvasc] 5 mg PO BID Metoprolol Tartrate [Lopressor] 100 mg PO BID Discharge Medication List Metoprolol Tartrate [Lopressor] 100 mg PO BID 12/07/16 [History] amLODIPine [Norvasc] 5 mg PO BID 12/07/16 [History]
--- NOTE | 2016-12-09 15:53 | P.PN ---
Subjective Date of service 12/09/2016 Progress note being dictated for Dr. Adams Interval history: This is an 80-year-old female admitted with right lower quadrant abdominal pain, weight loss, no bowel movement 2 days with history of ongoing nicotine dependence, no prior colonoscopy, and multiple other medical issues. [facility] abdomen/pelvis CT reportedly large cecal mass/inflammation with enlarged surrounding lymph nodes. Evaluated by oncology,surgery, cardiology. Underwent colonoscopy, confirming a large cecal mass, nonobstructive appearance, highly suspicious of cancer. Multiple polyps also found, majority in the ascending colon. Biopsies obtained/pathology pending. Hemoglobin 9, platelets 177. Complaining of abdominal discomfort, denies chest pain, palpitations or increased shortness of breath. Objective - Vital Signs Vital signs: Vital Signs Temp 98 F 12/09/16 07:24 Pulse 85 12/09/16 07:24 Resp 18 12/09/16 07:24 BP 109/58 12/09/16 07:24 Pulse Ox 95 12/09/16 07:00 Intake & Output 12/08/16 12/09/16 12/09/16 18:59 06:59 18:59 Intake Total 800 100 Balance 800 100 Weight 52.163 kg Intake: IV 100 Intake, IV Titration 800 Amount Sodium Chloride 0.9% 1, 800 000 ml @ 100 mls/hr IV . Q10H6M LIBAN with Potassium Chloride 20 meq Rx#: [id number] Other: Voiding Method Bedside Commode # Voids 3 4 # Bowel Movements 2 - Exam PHYSICAL EXAM: VITAL SIGNS: As above GENERAL: [Sitting up in bed, no acute distress] HEENT: [Pupils equal conjunctiva normal.] NECK: [Supple, no JVD] RESPIRATORY EFFORT:[ Normal] LUNGS: [Essentially clear, bilateral bases diminished, no wheezes rhonchi or crackles] CARDIOVASCULAR[ regular S1 and S2, no murmurs] GI: [Abdomen soft, tender right lower quadrant, positive bowel sounds.] PSYCH: [Alert and oriented -3, mood and affect normal.] NEURO: [No focal deficits] - Labs CBC & Chem 7: 12/09/16 07:12 12/09/16 07:12 Labs: Abnormal Lab Results - Last 24 Hours (Table) 12/09/16 12/09/16 12/09/16 Range/Units 07:12 07:12 07:12 RBC 3.26 L (3.80-5.40) m/uL Hgb 9.0 L (11.4-16.0) gm/dL Hct 27.8 L (34.0-46.0) % Lymphocytes # 0.6 L (1.0-4.8) k/uL Chloride 111 H (98-107) mmol/L Carbon Dioxide 18 L (22-30) mmol/L Total Protein 5.2 L (6.3-8.2) g/dL Albumin 2.3 L (3.5-5.0) g/dL Prealbumin <3 L (18-36) mg/dL Carcinoembryonic Ag 115.0 H (0.0-5.0) ng/mL Microbiology - Last 24 Hours (Table) 12/08/16 00:15 Blood Culture - Preliminary Blood No Growth after 24 hours 12/07/16 23:52 Blood Culture - Preliminary Blood No Growth after 24 hours 12/08/16 14:10 Urine Culture - Preliminary Urine,Clean Catch Assessment and Plan Plan: 1. Cecal mass,status post colonoscopy, suspicious of malignancy, pathology pending 2. Acute blood loss Anemia, suspect tumor related. Iron studies pending. 3. Hypertension Plan: Continue on current medication regime ,PPI,monitoring and symptomatic treatment. Flagyl IV added to med regime. Close monitoring of CBC with repeat labs ordered for a.m. iron studies pending. Follow closely with both oncology and surgery. Discharge planning in progress. The impression and plan of care has been dictated as directed. : I performed a H&P examination of this patient and discussed the same with the dictator. I agree with the dictator's note. Any additional findings/opinions/ etc. will be noted.
[2016-12-09] MEDS: LEVOFLOXACIN 500MG-D5W PMX 500 MG in DEXTROSE/WATER 1 100ML.BAG IVPB SCH (17:46)
[2016-12-09] MEDS: MELATONIN 3 MG TABLET PO SCH (21:20)
[2016-12-10] MEDS: 0.9% NACL WITH KCL 20 MEQ/L 1,000 ML IV SCH ×2 (05:29→16:21)
[2016-12-10] MEDS: PANTOPRAZOLE 40 MG/10 ML VIAL IV SCH (08:00)
[2016-12-10] MEDS: metroNIDAZOLE-NS PMX 500 MG in SALINE 1 100ML.BAG IVPB SCH ×3 (08:00→23:11)
[2016-12-10] MEDS: HEPARIN SODIUM,PORCINE 5,000 UNIT/ML 1 ML VIAL SQ SCH ×2 (08:01→20:26)
[2016-12-10] MEDS: METOPROLOL TARTRATE 50 MG TAB PO SCH ×2 (08:01→20:26)
[2016-12-10 08:06] LABS: Anion Gap 7 mmol/L; Blood Urea Nitrogen 6 mg/dL (7-17); Calcium 8.4 mg/dL (8.4-10.2); Carbon Dioxide 19 mmol/L (22-30); Chloride 111 mmol/L (98-107); Glucose 136 mg/dL (74-99); Iron 12 ug/dL (37-170); Non-African American GFR(MDRD) >60 (>60 ml/min/1.73 sqM); Potassium 3.5 mmol/L (3.5-5.1); Sodium 137 mmol/L (137-145)
[2016-12-10 08:14] LABS: % Iron Saturation 6.1 % (20-50); Total Iron Binding Capacity 197 ug/dL (265-497)
[2016-12-10 08:29] LABS: Basophils % (A) 0 %; CH 26.4; CHCM 30.9; Eosinophils # (A) 0.1 k/uL (0-0.7); Eosinophils % (A) 1 %; HCT 28.4 % (34.0-46.0); HDW 2.66; HGB 9.3 gm/dL (11.4-16.0); Hypochromasia Moderate; Luc # (Auto) 0.09; Luc % (Auto) 1; Lymphocytes # (A) 0.6 k/uL (1.0-4.8); Lymphocytes % (A) 9 %; MCH 27.9 pg (25.0-35.0); MCHC 32.6 g/dL (31.0-37.0); MCV 85.8 fL (80.0-100.0); Mean Platelet Volume 8.4; Monocytes # (A) 0.4 k/uL (0-1.0); Monocytes % (A) 6 %; Neutrophils # (A) 5.4 k/uL (1.3-7.7); Neutrophils % (A) 84 %; RBC 3.31 m/uL (3.80-5.40); RDW 15.4 % (11.5-15.5); WBC 6.5 k/uL (3.8-10.6); WBC (Perox) 6.86
[2016-12-10] MEDS: LEVOFLOXACIN 500MG-D5W PMX 500 MG in DEXTROSE/WATER 1 100ML.BAG IVPB SCH (18:04)
[2016-12-10] MEDS: MELATONIN 3 MG TABLET PO SCH (20:27)
[2016-12-10 23:17] VITALS: RESP 16
[2016-12-11] MEDS: 0.9% NACL WITH KCL 20 MEQ/L 1,000 ML IV SCH ×2 (02:20→10:42)
[2016-12-11 07:19] VITALS: BP 119/63; PULSE 84; TEMP 96.6
[2016-12-11 07:20] LABS: Basophils % (A) 0 %; CH 26.5; CHCM 31.5; Eosinophils # (A) 0.1 k/uL (0-0.7); Eosinophils % (A) 1 %; HCT 29.1 % (34.0-46.0); HDW 2.76; HGB 9.6 gm/dL (11.4-16.0); Hypochromasia Slight; Luc # (Auto) 0.09; Luc % (Auto) 2; Lymphocytes # (A) 0.8 k/uL (1.0-4.8); Lymphocytes % (A) 15 %; MCH 27.9 pg (25.0-35.0); MCHC 33.1 g/dL (31.0-37.0); MCV 84.5 fL (80.0-100.0); Mean Platelet Volume 8.4; Monocytes # (A) 0.3 k/uL (0-1.0); Monocytes % (A) 6 %; Neutrophils # (A) 3.8 k/uL (1.3-7.7); Neutrophils % (A) 75 %; RBC 3.45 m/uL (3.80-5.40); RDW 15.3 % (11.5-15.5); WBC 5.1 k/uL (3.8-10.6); WBC (Perox) 5.28
--- NOTE | 2016-12-11 08:53 | P.PN ---
Subjective The patient states that her abdominal pain is improved. She is fairly comfortable at this time. She had slightly loose bowel movement today with no evidence of any bleeding. Objective - Vital Signs Vital signs: Vital Signs Temp 96.6 F L 12/11/16 07:00 Pulse 84 12/11/16 07:00 Resp 16 12/11/16 07:00 BP 119/63 12/11/16 07:00 Pulse Ox 97 12/11/16 07:00 Intake & Output 12/10/16 12/11/16 12/11/16 18:59 06:59 18:59 Intake Total 900 Balance 900 Intake: Intake, IV Titration 900 Amount 0.9% NaCl with KCl 20 Meq 800 /l 1,000 ml @ 100 mls/hr IV .Q10H LIBAN Rx#: [id number] metroNIDAZOLE-NS PMX 500 100 mg In Saline 1 100ml.bag @ 100 mls/hr IVPB Q8HR LIBAN Rx#:[id number] Other: # Voids 4 # Bowel Movements 1 - Constitutional General appearance: Present: no acute distress - EENT Eyes: Present: EOMI, PERRLA ENT: Present: hearing grossly normal, normal oropharynx - Respiratory Respiratory: bilateral: CTA - Cardiovascular Rhythm: regular Heart sounds: normal: S1, S2 - Gastrointestinal General gastrointestinal: Present: normal bowel sounds, soft Localized gastrointestinal: tender: RLQ - Integumentary Integumentary: Present: normal - Neurologic Neurologic: Present: CNII-XII intact - Musculoskeletal Musculoskeletal: Present: strength equal bilaterally - Psychiatric Psychiatric: Present: A&O x's 3, appropriate affect - Labs CBC & Chem 7: 12/11/16 06:46 12/10/16 07:02 Labs: Abnormal Lab Results - Last 24 Hours (Table) 12/10/16 12/11/16 Range/Units 07:02 06:46 RBC 3.45 L (3.80-5.40) m/uL Hgb 9.6 L (11.4-16.0) gm/dL Hct 29.1 L (34.0-46.0) % Lymphocytes # 0.8 L (1.0-4.8) k/uL Chloride 111 H (98-107) mmol/L Carbon Dioxide 19 L (22-30) mmol/L BUN 6 L (7-17) mg/dL Glucose 136 H (74-99) mg/dL Iron 12 L (37-170) ug/dL TIBC 197 L (265-497) ug/dL % Saturation 6.1 L (20-50) % Microbiology - Last 24 Hours (Table) 12/08/16 00:15 Blood Culture - Preliminary Blood No Growth after 72 hours 12/07/16 23:52 Blood Culture - Preliminary Blood No Growth after 72 hours Assessment and Plan (1) Cecum mass Narrative/Plan: Her reports of CT scans were requested a, and obtained from [facility]. The patient did have a second computed tomography scan done with IV and oral contrast. The report was reviewed. It did not show any evidence of metastatic disease or distant adenopathy. The above was discussed with the patient. Await the results of the biopsy from the cecal mass as well as other polyps. If the polyps are nonmalignant, the patient can proceed with a hemicolectomy. However if the transverse colon or descending colon polyps also show signs of malignancy, she will need more extensive surgery. Status: Acute (2) Colon polyps Status: Acute (3) Anemia Narrative/Plan: Her iron studies do confirm iron deficiency. I will therefore order IV iron for her. By mouth iron would not be a good choice at this time, due to potential for constipation and abdominal pain, which would be detrimental, given the presence of the large partially obstructing cecal mass Status: Acute
[2016-12-11] MEDS: METOPROLOL TARTRATE 50 MG TAB PO SCH (09:08)
[2016-12-11] MEDS: metroNIDAZOLE-NS PMX 500 MG in SALINE 1 100ML.BAG IVPB SCH (09:08)
[2016-12-11] MEDS: HEPARIN SODIUM,PORCINE 5,000 UNIT/ML 1 ML VIAL SQ SCH (09:09)
[2016-12-11] MEDS: PANTOPRAZOLE 40 MG/10 ML VIAL IV SCH (09:16)
[2016-12-11] MEDS ORDERED: SODIUM FERRIC GLUCONAT-SUCROSE 125 MG in SODIUM CHLORIDE 0.9% 100 ML IVPB SCH (09:30)
--- NOTE | 2016-12-11 13:29 | P.PN ---
Subjective 80-year-old female seen and examined. Currently resting in bed. Patient's postop third december colonoscopy with polypectomy using cold biopsy forceps and tattooing of the cecal mass and ascending colon polyp. Patient states she's tolerating a diet. States had one bowel movement this morning. Hemoglobin is 9.6. The admitting hemoglobin 9.4. Objective - Vital Signs Vital signs: Vital Signs Temp 96.6 F L 12/11/16 07:00 Pulse 84 12/11/16 08:00 Resp 16 12/11/16 08:00 BP 119/63 12/11/16 07:00 Pulse Ox 97 12/11/16 07:00 Intake & Output 12/10/16 12/11/16 12/11/16 18:59 06:59 18:59 Intake Total 900 Balance 900 Intake: Intake, IV Titration 900 Amount 0.9% NaCl with KCl 20 Meq 800 /l 1,000 ml @ 100 mls/hr IV .Q10H LIBAN Rx#: [id number] metroNIDAZOLE-NS PMX 500 100 mg In Saline 1 100ml.bag @ 100 mls/hr IVPB Q8HR LIBAN Rx#:[id number] Other: Voiding Method Bedside Commode # Voids 4 3 # Bowel Movements 1 1 - Exam Physical exam 80-year-old female sitting up in bed appears in no acute distress pleasant oriented to person place Lungs essentially clear on room air Heart S1-S2 audible regular Abdomen soft not distended nontender bowel tones present tolerating diet no reports of nausea vomiting Extremities no edema - Labs CBC & Chem 7: 12/11/16 06:46 12/10/16 07:02 Labs: Abnormal Lab Results - Last 24 Hours (Table) 12/11/16 Range/Units 06:46 RBC 3.45 L (3.80-5.40) m/uL Hgb 9.6 L (11.4-16.0) gm/dL Hct 29.1 L (34.0-46.0) % Lymphocytes # 0.8 L (1.0-4.8) k/uL Microbiology - Last 24 Hours (Table) 12/08/16 00:15 Blood Culture - Preliminary Blood No Growth after 72 hours 12/07/16 23:52 Blood Culture - Preliminary Blood No Growth after 72 hours Assessment and Plan Plan: Impression Present on admission anemia since iron studies indicate likely iron deficiency CAT scan abdomen pelvis large partially obstructing cecal mass 12/09/2016 colonoscopy with polypectomy using cold biopsy forceps and tattooing of the cecal mass and ascending colon polyp The repeat CAT scan abdomen and pelvis with IV and oral contrast show no evidence of metastatic disease or distal adenopathy. Present on admission right lower quadrant abdominal pain with weight loss suspect due to malignancy Hypertension Plan Continue recommendations by Dr. Noel IV iron as directed Await the path report on the polyps if the polyps are not malignant patient can proceed with a hemicolectomy however if the transverse colon or descending colon polyps show signs of malignancy patient will need more extensive surgery We'll continue to follow with further recommendations pending path report of the polyps The above impression and plan of care have been discussed and directed by signing physician. Jessi Chin nurse practitioner acting as scribe for signing physician.
--- NOTE | 2016-12-11 14:36 | XR ---
EXAMINATION TYPE: XR chest 1V portable DATE OF EXAM: 12/11/2016 HISTORY: Shortness of breath. COMPARISON: June 10, 2016 TECHNIQUE: Single view of the chest is submitted. FINDINGS: Demonstrated are scattered senescent parenchymal change. There is no evidence for focal infiltrate. The heart is stable. Hilar and mediastinal structures are within normal limits. Degenerative changes are seen of the dorsal spine. IMPRESSION: 1. Chronic changes without evidence for acute pulmonary disease.
--- NOTE | 2016-12-11 22:23 | DS ---
DATE OF SERVICE: 12/11/2016 This 80-year-old woman was admitted with multiple symptomatology. She has possibly a colonic tumor. Dr. Bonner has evaluated the patient and recommended ECF rehab before definitive surgery. I saw and evaluated the patient today. Please refer to my previous dictations for further details regarding list of diagnoses and medications. The patient is being transferred to [facility]. The patient also had polyps and the final biopsy reports are pending at this time. The lab work shows hemoglobin at 9.6, which is stable. CEA is elevated to 115. Dr. Noel has been consulted. A chest x-ray has been taken. As mentioned earlier, the patient will be transferred to [facility] for further evaluation and treatment. Total time taken 35 minutes. Please refer to my previous dictation and medication reconciliation for list of medications. Prognosis guarded. Discussed with the family at length on multiple occasions. RUBY
--- NOTE | 2016-12-12 21:13 | CDI ---
In responding to this query, please exercise your independent professional judgment. The [facility] Coding Staff and Clinical Documentation Specialists appreciate your assistance in clarifying documentation, maintaining compliance with coding guidelines, accurately documenting patients condition and capturing severity of illness. The fact that a question is asked does not imply that any particular answer is desired or expected. Communication forms are a method of clarifying documentation and are not made part of the Legal Health Record. Thank you in advance for your clarification. Last Revision, April 2015 Kushal Bruce [address] [address] [place] [address] Documentation Clarification Form Date: 12/12/2016 8:55:00 PM From: Savanna Brown/Joanna Casas Admit Date: 12/07/2016 8:39:00 PM Patient Name: Zabrina Armenta Visit Number: [id number] Discharge Date: Dr. Amaya Adams CT pelvis showed large cecal mass. No prior colonoscopy. Clinical Indicators: Abdominal pain, weight loss, no bowel movement x 2 days Vital Signs: T. 98.6, P 114, R. 20, BP 97/52 Other Clinical Indicators: Iron deficiency anemia Treatment: Colonoscopy with biopsy of colon polyps in the ascending, transverse , descending colon, rectum and biopsy of cecal mass. Path Report: Final report shows: Cecum - adenocarcinoma, ascending colon - adenoma, hepatic flexure - adenoma, transverse colon - serrated adenoma, rectum - differential includes hyperplastic polyp and serrated adenoma. In your professional opinion, can you please give a definitive diagnosis of the polyps and cecal mass? Other Unable to determine Please document in your discharge summary in order to capture severity of illness and risk of mortality. Include clinical findings that support your diagnosis. FYI: Press F11 to launch patient chart. Place X here if this finding has no clinical significance, is not applicable or if you are not able to provide any additional documentation. NIKIAD
--- NOTE | 2016-12-15 11:32 | DS ---
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 3. Hepatic flexure adenoma. 4. Transverse colon adenoma adenoma, rectum, hyperplastic polyp and adenoma. MTDD
--- NOTE | 2016-12-18 15:59 | PN ---
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 No chest pain, no palpitations, no fever. On exam, alert and oriented x3. Pulse 80, blood pressure 102/52, respirations 14 , temperature 97.2, pulse ox 96% on room air. HEENT: Conjunctivae normal. NECK: No jugular venous distention. CARDIOVASCULAR: S1, S2. RESPIRATORY: Breath sounds diminished on the bases. No rhonchi, no crackles. ABDOMEN: Soft, mild diffuse tenderness. LEGS: No edema. NERVOUS SYSTEM: No focal deficits. LABS: Hemoglobin 9.3. ASSESSMENT: 1. Sacral mass status post colonoscopy. 2. Acute blood loss anemia. 3. Hypertension. RECOMMENDATIONS AND DISCUSSION: I recommend to continue the current medications , continue with monitoring and symptomatic treatment. Otherwise at this time monitor the patient closely. Closely follow with surgery. Further recommendations to follow. MTDD
--- NOTE | 2016-12-18 17:56 | HP ---
DATE OF SERVICE: 12/07/2016 CHIEF COMPLAINT: Abdominal pain. HISTORY OF PRESENT ILLNESS: This 80-year-old woman with a past medical history of multiple medical problems was admitted with right lower quadrant abdominal pain, history of weight loss, referred from [facility]. CT scan showed a large mass ( ) mass in the right lower quadrant with surrounding lymph nodes. There is no history of any fever, rigor or chills. No history of headache, loss of consciousness, seizures. PAST MEDICAL HISTORY: 1. History of hypertension. 2. History of DJD. Home medications prior to admission were reviewed and included: 1. Norvasc 5 mg p.o. daily. 2. Protonix. 3. [place]. 4. Tylenol. ALLERGIES: PENICILLIN. FAMILY HISTORY: No history of heart disease or strokes in the family. SOCIAL HISTORY: Smoking. Occasional alcohol intake. REVIEW OF SYSTEMS: ENT: Diminished hearing. Diminished vision. CARDIOVASCULAR SYSTEM: No angina. RESPIRATORY SYSTEM: No cough, hemoptysis. GI: As mentioned earlier. : No dysuria, retention. NERVOUS SYSTEM: No numbness, weakness. ALLERGY/IMMUNOLOGY: No asthma, hayfever. MUSCULOSKELETAL: As mentioned earlier. HEMATOLOGY/ONCOLOGY: No history of anemia. ENDOCRINE: No history of diabetes or hypothyroidism. CONSTITUTIONAL: As mentioned earlier. DERMATOLOGIC: Negative. RHEUMATOLOGIC: Negative. PSYCHIATRY: As mentioned earlier. PHYSICAL EXAMINATION: Patient is alert and oriented x3. Pulse is 114, blood pressure 97/52, respirations 20, temperature 98.6, pulse ox 95% on room air. HEENT: Conjunctivae normal. NECK: No jugular venous congestion. CARDIAC: S1, S2 muffled. RESPIRATORY: Breath sounds diminished at the bases. A few scattered rhonchi and crackles. ABDOMEN: Soft. Mild diffuse tenderness in the right lower quadrant. No guarding. No rigidity. No mass palpable. LEGS: No edema. No swelling. NERVOUS SYSTEM: No focal deficit. LABS AT THIS TIME: WBC 10.3, hemoglobin 9.4. Sodium 129. ASSESSMENT: 1. Cecal mass, right lower lobe, for evaluation. Rule out malignancy. 2. Acute blood loss anemia. 3. Hypotension. 4. Multiple medical problems. RECOMMENDATIONS AND DISCUSSION: At this time I recommend to continue current medications, continue with symptomatic treatment. Otherwise, closely monitor. Symptomatic treatment for pain. Surgical evaluation. Patient will need a colonoscopy and further evaluation regarding possible malignancy. CEA. Resume the home medications. Prognosis guarded because of multiple complex medical issues. Further recommendations to follow. Discussed with the patient and family , who understand and agree. RUBY
== END 2016-12-11 14:56 | DRG 375 ==
LOC: 4MS4W 20:39
PROVIDERS: ADMIT Hospitalist; ATTEND Hospitalist
PROC: 0DBP8ZX Excision of Rectum, Via Natural or Artificial Opening Endoscopic, Diagnostic (ICD-10-PCS; 2016-12-09)
PROC: 0DBM8ZX Excision of Descending Colon, Via Natural or Artificial Opening Endoscopic, Diagnostic (ICD-10-PCS; 2016-12-09)
PROC: 0DBH8ZX Excision of Cecum, Via Natural or Artificial Opening Endoscopic, Diagnostic (ICD-10-PCS; 2016-12-09)
PROC: 0DBK8ZX Excision of Ascending Colon, Via Natural or Artificial Opening Endoscopic, Diagnostic (ICD-10-PCS; principal; 2016-12-09 07:30)
PROC: 0DBL8ZX Excision of Transverse Colon, Via Natural or Artificial Opening Endoscopic, Diagnostic (ICD-10-PCS; 2016-12-09 07:30)
DX: C18.0 Malignant neoplasm of cecum (principal); D62 Acute posthemorrhagic anemia; I95.9 Hypotension, unspecified; F03.90 Unspecified dementia, unspecified severity, without behavioral disturbance, psychotic disturbance, mood disturbance, and anxiety; I10 Essential (primary) hypertension; H91.90 Unspecified hearing loss, unspecified ear; H54.7 Unspecified visual loss; D50.9 Iron deficiency anemia, unspecified; F17.210 Nicotine dependence, cigarettes, uncomplicated; M19.90 Unspecified osteoarthritis, unspecified site; D12.2 Benign neoplasm of ascending colon; K57.30 Diverticulosis of large intestine without perforation or abscess without bleeding; K63.5 Polyp of colon; D12.3 Benign neoplasm of transverse colon; R59.9 Enlarged lymph nodes, unspecified; Z79.899 Other long term (current) drug therapy; Z80.3 Family history of malignant neoplasm of breast
CPT/HCPCS: 44404; 45380; 71010; 80048; 80053; 82378; 82728; 83540; 83550; 83605; 84134; 85025; 85610; 85730; 86850; 86900; 86901; 87040; 87086; 88305; 93005; 93306

== ENCOUNTER 2016-12-23 10:02 | Inpatient (IN) | payer MEDICARE, BC ==
[~2016-12-23 10:02] MED LIST: ACETAMINOPHEN TAB 500 MG TAB PO ONE; ALVIMOPAN 12 MG CAPSULE PO ONE; Antibiotics per Pharmacy 1 EACH MISC MISCELLANE PRN; HEPARIN SODIUM,PORCINE 5,000 UNIT/ML 1 ML VIAL SQ ONE; LIDOCAINE 1% 20 ML VIAL (10MG/ML) FOR IV START INTRADERMA PRN; MIDAZOLAM 2 MG/2 ML VIAL IV PRN; ONDANSETRON 4 MG/2 ML VIAL IVP ONE; ceFAZolin 2 GM in SODIUM CHLORIDE 0.9% 100 ML IVPB ONE; metroNIDAZOLE-NS PMX 500 MG in SALINE 1 100ML.BAG IVPB ONE
[2016-12-23] MEDS: LACTATED RINGERS 1,000 ML IV SCH ×3 (10:40→21:13)
[2016-12-23] MEDS ORDERED: LIDOCAINE 1% 20 ML VIAL (10MG/ML) FOR IV START INTRADERMA ONE (10:40)
[2016-12-23 11:01] LABS: Anisocytosis Slight; Basophils # (A) 0.1 k/uL (0-0.2); Basophils % (A) 1 %; CH 26.7; CHCM 31.7; Eosinophils # (A) 0.2 k/uL (0-0.7); Eosinophils % (A) 2 %; HCT 31.5 % (34.0-46.0); HDW 2.51; HGB 10.2 gm/dL (11.4-16.0); Hypochromasia Slight; Luc # (Auto) 0.27; Luc % (Auto) 4; Lymphocytes # (A) 1.6 k/uL (1.0-4.8); Lymphocytes % (A) 21 %; MCH 27.4 pg (25.0-35.0); MCHC 32.3 g/dL (31.0-37.0); MCV 84.7 fL (80.0-100.0); Mean Platelet Volume 7.1; Monocytes # (A) 0.5 k/uL (0-1.0); Monocytes % (A) 7 %; Neutrophils % (A) 66 %; RBC 3.71 m/uL (3.80-5.40); RDW 16.3 % (11.5-15.5); WBC 7.6 k/uL (3.8-10.6); WBC (Perox) 7.66
[2016-12-23 11:14] LABS: ALT 23 U/L (9-52); AST 27 U/L (14-36); Alkaline Phosphatase 61 U/L (38-126); Anion Gap 8 mmol/L; Blood Urea Nitrogen 14 mg/dL (7-17); Calcium 9.1 mg/dL (8.4-10.2); Carbon Dioxide 29 mmol/L (22-30); Chloride 102 mmol/L (98-107); Glucose 65 mg/dL (74-99); Non-African American GFR(MDRD) >60 (>60 ml/min/1.73 sqM); Potassium 4.4 mmol/L (3.5-5.1); Sodium 139 mmol/L (137-145); Total Bilirubin 0.4 mg/dL (0.2-1.3); Total Protein 6.4 g/dL (6.3-8.2)
[2016-12-23 11:42] LABS: INR 1.1 (<1.2)
[2016-12-23] MEDS ORDERED: PHENYLEPHRINE-0.9% NACL SYG 1 MG/10 ML SYRINGE ONE (11:52)
[2016-12-23] MEDS ORDERED: LIDOCAINE 1% INJ 10MG/ML (20 ML MDV) ONE (11:52)
[2016-12-23] MEDS ORDERED: ePHEDrine 50 MG/ML 1 ML AMP ONE (11:52)
[2016-12-23] MEDS ORDERED: NEOSTIGMINE 1 MG/ML 10 ML VIAL ONE (11:52)
[2016-12-23] MEDS ORDERED: fentaNYL (PF) 50 MCG/ML 2 ML AMP ONE (11:52)
[2016-12-23] MEDS ORDERED: ONDANSETRON 4 MG/2 ML VIAL ONE (11:52)
[2016-12-23] MEDS ORDERED: PROPOFOL 10 MG/ML 20 ML VIAL IV ONE (11:52)
[2016-12-23] MEDS ORDERED: MIDAZOLAM 2 MG/2 ML VIAL ONE (11:52)
[2016-12-23] MEDS ORDERED: VECURONIUM 10 MG VIAL IV ONE (11:52)
[2016-12-23] MEDS ORDERED: SUCCINYLCHOLINE CHLORIDE 100 MG/5 ML SYR IV ONE (11:52)
[2016-12-23] MEDS ORDERED: GLYCOPYRROLATE 0.2 MG/ML 2 ML VIAL ONE (11:52)
[2016-12-23] MEDS ORDERED: SODIUM CHLORIDE 0.9% 50 ML with CLINDAMYCIN 900 MG IV ONE ×4 (12:15)
[2016-12-23] MEDS ORDERED: LACTATED RINGERS 1,000 ML IV ONE ×3 (12:25→13:34)
[2016-12-23] MEDS ORDERED: METOCLOPRAMIDE 5 MG/ML 2 ML VIAL IVP PRN (15:02)
[2016-12-23] MEDS ORDERED: ONDANSETRON 4 MG/2 ML VIAL IVP PRN (15:02)
[2016-12-23] MEDS ORDERED: BENZOCAINE/MENTHOL LOZENG 1 EACH LOZENGE MUCOUS MEM PRN (15:02)
--- NOTE | 2016-12-23 15:19 | P.OP ---
Date of Procedure: 12/23/16 Preoperative Diagnosis: Cecal and ascending colon mass Multiple colon polyps Hypertension Severe protein energy malnutrition - prealbumin 3 Dementia Postoperative Diagnosis: Same Procedure(s) Performed: Open right hemicolectomy Extensive lysis of adhesions 60 min Primary small bowel to colon anastomosis Open liver wedge biopsy Implants: NA Anesthesia: MAUA Surgeon: Catina Bonner Estimated Blood Loss (ml): 300 IV fluids (ml): 3,000 Urine output (ml): 100 Pathology: other Condition: other (ASA 3) Disposition: PACU Indications for Procedure: 81 years old female presenting with large near obstructing mass in the right colon. She has hypertension, dementia, severe protein energy malnutrition. Informed consent obtained from the patient and her daughters after explaining the risks, benefits and potential complications including bleeding, infection, anastomotic leak, possibility of ostomy and all indicated procedures Operative Findings: Large bulky cecum and ascending colon mass eroding into the mesocolon and adjacent small bowel mesentry Extensive adhesions in the right upper quadrant secondary to prior open cholecystectomy lasting 60 minutes Two hard white nodules noted in the left lobe of the liver , suspicious for metastatic disease and was biopsied Description of Procedure: The patient was brought to the operating room and placed in supine position with both arms out. General anesthesia with endotracheal intubation was performed as per anesthesia team. A Medeiros catheter was inserted under sterile aseptic precautions. Bilateral SCDs were placed and patient was secured to the operating table using a footboard and two secure straps. Chlorhexidine was used to prep the abdomen followed by application of sterile drapes . A timeout was performed to verify correct patient and procedure. Patient was confirmed to receive perioperative IV antibiotics and subcutaneous VTE prophylaxis. A vertical midline incision was made and peritoneal cavity was entered under direct vision. Large bulky mass in the cecum and ascending colon noted. The small bowel mesentery was adhered to this mass which was gently peeled off. The appendix was identified and elevated using a Garrick grasper. Dissection was carried out from lateral to medial orientation. The white line of Toldt was dissected. Blunt sweeping movements were carried out to reflect the cecum and ascending colon medially. The peritoneal attachments from terminal ileum and cecum to the lateral abdominal wall were taken down using LigaSure. Dissection was carried out close to the cecum and away from the right ureter. Careful dissection was carried out to separate the omentum from small bowel mesentery. Lysis of adhesions were done for 60 minutes to carefully separate the omental attachments from underneath right upper quadrant and mobilize the hepatic flexure. Dissection was then carried out from transverse mesocolon towards the hepatic flexure. Blunt sweeping movements were used and the duodenum was left in the retroperitoneum. Care was taken not to mobilize the right kidney medially. The entire right colon was mobilized beyond the hepatic flexure. Loose fibrofatty tissue including small blood vessels were taken down using LigaSure device. The cecum was free enough to reach the midline. A window was made in mesentery of the small bowel approximately 10 cm from ileocecal valve. The small bowel was divided using DAVY 75 staple load. The ileocolic pedicle divided between two Anila clamps and doubly suture ligated. The colon was divided 10 cm distal to the ascending colon after creating a window in the mesocolon. DAVY 75mm blue staple load was fired to transect the large bowel. The mesentery was divided between 2 Anila clamps . The right colon was sent off as a specimen. Attention was then focused to create a [id number] functional end anastomosis between small bowel and transverse colon. DAVY 75 staple load was fired to create a [id number] anastomosis. The final enterotomy was closed using DAVY staple loadx2. Three seromuscular sutures of 3-0 silk were placed between the small and large bowel anastomosis. There was no twist or torsion of the large or small bowel. The mesenteric defect was closed with interrupted sutures of 4- 0 Vicryl. Upon further exploration of the abdominal cavity, no peritoneal nodules noted. Two hard nodules identified in the left lobe of the liver, a wedge liver bx performed using Bovie electrocautery. Hemostasis was checked. Both were about 1.5 cm in largest diameter The anastomosis was interiorized . There was a large bleeder from the greater omentum which was suture ligated. The midline abdomen was closed with double- stranded PDS 2 The iraida were applied to approximate the skin. A leticia drain was left in the subcutaneous tissue The sponge, instrument, needle count were correct x2 Patient tolerated the procedure well and was taken to post anesthetic care unit in stable condition.
[2016-12-23] MEDS ORDERED: HYDROmorphone 1 MG/ML 1 ML SYRINGE IVP ONE ×2 (15:23→16:00)
[2016-12-23 20:40] VITALS: BMI 19.0
[2016-12-23] MEDS: FAMOTIDINE 20 MG/2 ML VIAL IV SCH (21:18)
[2016-12-23] MEDS: HYDROmorphone 1 MG/ML 1 ML SYRINGE IVP PRN (21:37)
[2016-12-24] MEDS: HYDROmorphone 1 MG/ML 1 ML SYRINGE IVP PRN ×7 (01:34→23:43)
[2016-12-24] MEDS: HEPARIN SODIUM,PORCINE 5,000 UNIT/ML 1 ML VIAL SQ SCH ×4 (01:36→23:45)
[2016-12-24] MEDS ORDERED: METOPROLOL TARTRATE 50 MG TAB PO STA (03:23)
[2016-12-24] MEDS ORDERED: SODIUM CHLORIDE 0.9% 500 ML IV ONE (05:16)
[2016-12-24] MEDS: LACTATED RINGERS 1,000 ML IV SCH ×3 (06:06→22:35)
[2016-12-24 07:29] LABS: Anisocytosis Slight; Basophils % (A) 0 %; CH 26.8; CHCM 30.3; Eosinophils % (A) 0 %; HCT 29.9 % (34.0-46.0); HDW 2.44; HGB 9.3 gm/dL (11.4-16.0); Hypochromasia Moderate; Luc # (Auto) 0.12; Luc % (Auto) 1; Lymphocytes # (A) 0.9 k/uL (1.0-4.8); Lymphocytes % (A) 5 %; MCH 27.7 pg (25.0-35.0); MCHC 31.1 g/dL (31.0-37.0); Mean Platelet Volume 7.7; Monocytes # (A) 0.6 k/uL (0-1.0); Monocytes % (A) 4 %; Neutrophils # (A) 14.7 k/uL (1.3-7.7); Neutrophils % (A) 90 %; RBC 3.36 m/uL (3.80-5.40); RDW 16.3 % (11.5-15.5); WBC 16.3 k/uL (3.8-10.6); WBC (Perox) 16.92
[2016-12-24 07:50] LABS: Anion Gap 9 mmol/L; Blood Urea Nitrogen 14 mg/dL (7-17); Calcium 8.5 mg/dL (8.4-10.2); Carbon Dioxide 23 mmol/L (22-30); Chloride 104 mmol/L (98-107); Glucose 128 mg/dL (74-99); Non-African American GFR(MDRD) 60 (>60 ml/min/1.73 sqM); Potassium 5.4 mmol/L (3.5-5.1); Sodium 136 mmol/L (137-145)
[2016-12-24] MEDS: ALVIMOPAN 12 MG CAPSULE PO SCH ×2 (08:03→21:40)
[2016-12-24] MEDS: FAMOTIDINE 20 MG/2 ML VIAL IV SCH (08:03)
[2016-12-24] MEDS: METOPROLOL TARTRATE 50 MG TAB PO SCH ×2 (09:40→21:41)
[2016-12-24] MEDS: ESOMEPRAZOLE 20 MG in SODIUM CHLORIDE 0.9% 50 ML IVPB SCH (09:51)
[2016-12-24] MEDS: SODIUM CHLORIDE 0.9% 1,000 ML IV SCH ×2 (10:59→21:39)
--- NOTE | 2016-12-24 12:56 | P.CONS ---
History of Present Illness - Reason for Consult Leukocytosis, hyperkalemia, tachycardia - History of Present Illness Patient underwent open colectomy on the right side with end-to-end anastomosis. Patient denied any fever or chills, but didn't pass gas yet. Patient is on ice chips for diet. Is a history of hypertension and is on metoprolol, patient is presently tachycardic due to reflex tachycardia from holding a lot during the perioperative period. Patient does have leukocytosis, denied any fever, chills, nausea, vomiting, dysuria, cough. Patient does have some memory issues but appears to be tolerating opiates for pain because of that, I 'am not changing her pain medications at this time. Review of Systems REVIEW OF SYSTEMS: CONSTITUTIONAL: No fever, no malaise, no fatigue. HEENT: No recent visual problems or hearing problems. Denied any sore throat. CARDIOVASCULAR: No chest pain, orthopnea, PND, no palpitations, no syncope. PULMONARY: No shortness of breath, no cough, no hemoptysis. GASTROINTESTINAL: No diarrhea, no nausea, no vomiting, and planning of abdominal pain NEUROLOGICAL: No headaches, no weakness, no numbness. HEMATOLOGICAL: Denies any bleeding or petechiae. GENITOURINARY: Denies any burning micturition, frequency, or urgency. MUSCULOSKELETAL/RHEUMATOLOGICAL: Denies any joint pain, swelling, or any muscle pain. ENDOCRINE: Denies any polyuria or polydipsia. The rest of the 14-point review of systems is negative. Past Medical History Past Medical History: Cancer, Hypertension Additional Past Medical History / Comment(s): colon cancer, abdominal tenderness , dry skin, anemia, recent UTI, History of Any Multi-Drug Resistant Organisms: None Reported Past Surgical History: Cholecystectomy, Orthopedic Surgery Additional Past Surgical History / Comment(s): cateract sx kirt, colonoscopy, D&C , surgery kirt shoulder(Fx), OPEN RIGHT HEMICOLECTOMY WITH LYSIS OF ADHESIONS AND LIVER BIOPSY 12/23/2016, Past Anesthesia/Blood Transfusion Reactions: No Reported Reaction Past Psychological History: Anxiety Additional Psychological History / Comment(s): Short term memory loss Smoking Status: Light tobacco smoker Past Alcohol Use History: None Reported Past Drug Use History: None Reported - Past Family History Mother Family Medical History: Cancer Sister(s) Family Medical History: Cancer Father Family Medical History: Cancer Medications and Allergies Home Medications Medication Instructions Recorded Confirmed Type Metoprolol Tartrate [Lopressor] 100 mg PO BID 12/07/16 12/23/16 History amLODIPine [Norvasc] 5 mg PO BID 12/07/16 12/23/16 History Allergies Allergy/AdvReac Type Severity Reaction Status Date / Time Penicillins Allergy Rash/Hives Verified 12/23/16 17:30 Physical Exam Vitals: Vital Signs Temp Pulse Pulse Resp BP Pulse Ox 12/24/16 08:00 79 134 H 16 12/24/16 07:00 97.0 F L 16 125/59 96 12/24/16 05:26 134 H 106/67 12/24/16 03:19 97.9 F 138 H 18 112/67 97 12/24/16 00:00 16 12/23/16 21:54 79 16 115/61 100 12/23/16 21:53 98.2 F 87 16 119/62 100 12/23/16 21:43 97.4 F L 89 18 108/70 100 12/23/16 20:00 16 12/23/16 16:40 80 16 102/60 100 12/23/16 16:25 79 16 100/55 100 12/23/16 16:05 78 16 100/56 99 12/23/16 15:50 75 16 102/57 100 12/23/16 15:35 77 16 98/55 99 12/23/16 15:20 80 16 107/57 99 12/23/16 15:05 99 16 125/59 100 12/23/16 14:50 97.4 F L 100 16 121/64 98 Intake and Output 12/23/16 12/24/16 12/24/16 22:59 06:59 14:59 Intake Total 450 50 Output Total 380 200 Balance 70 -150 Intake: IV 400 Oral 50 50 Output: Urine 380 200 Other: Voiding Method Indwelling Catheter Indwelling Catheter Weight 56.8 kg PHYSICAL EXAMINATION: GENERAL: The patient is alert and oriented x3, not in any acute distress. Well developed, well nourished. HEENT: Pupils are round and equally reacting to light. EOMI. No scleral icterus. No conjunctival pallor. Normocephalic, atraumatic. No pharyngeal erythema. No thyromegaly. CARDIOVASCULAR: S1 and S2 present. No murmurs, rubs, or gallops. PULMONARY: Chest is clear to auscultation, no wheezing or crackles. ABDOMEN: Absent bowel sounds, postsurgically pack the surgical site area appears to be clean MUSCULOSKELETAL: No joint swelling or deformity. EXTREMITIES: No cyanosis, clubbing, or pedal edema. NEUROLOGICAL: Gross neurological examination did not reveal any focal deficits. SKIN: No rashes. Results CBC & Chem 7: 12/24/16 06:58 12/24/16 06:58 Labs: Abnormal Lab Results - Last 24 Hours (Table) 12/24/16 12/24/16 Range/Units 06:58 06:58 WBC 16.3 H (3.8-10.6) k/uL RBC 3.36 L (3.80-5.40) m/uL Hgb 9.3 L (11.4-16.0) gm/dL Hct 29.9 L (34.0-46.0) % RDW 16.3 H (11.5-15.5) % Neutrophils # 14.7 H (1.3-7.7) k/uL Lymphocytes # 0.9 L (1.0-4.8) k/uL Sodium 136 L (137-145) mmol/L Potassium 5.4 H (3.5-5.1) mmol/L Glucose 128 H (74-99) mg/dL Assessment and Plan Plan: 1leukocytosis: Without any signs or symptoms of infection no further intervention is necessary at this point of time. 2 sinus tachycardia: Secondary to reflex tachycardia, metoprolol was restarted back. 3 hypertension and metoprolol can be restarted, hold off amlodipine to prevent perioperative hypotension related complications. 4 mild hyperkalemia: Repeat potassium tomorrow. Addressed if it's still elevated tomorrow 5 right hemicolectomy: Pain management and DVT prophylaxis per primary service. Patient has colon cancer.
--- NOTE | 2016-12-24 14:28 | CONS ---
Mrs. Goins is an 81-year-old female who underwent surgery yesterday by Dr. Bonner. She has underwent a open right hemicolectomy with lysis of adhesion. She was admitted recently to the hospital with severe abdominal pain and was found to have obstructive mass in the right colon. She was seen at that time by Dr. Prado for preop evaluation and felt to be stable from the cardiac standpoint. She has a history of hypertension but no history of coronary artery disease. She walks daily about 1 mile without any symptoms. She denies any exertional chest pain, no breathing problem. She has no dizziness, palpitation or syncope. No peripheral edema. She has an underlying right bundle branch block and she is having a lot of abdominal pain today and she was noted to be in sinus tachycardia. Her coronary risk factors are remarkable for hypertension. She is nondiabetic, nonsmoker. Her medications at the time of admission include amlodipine 5 mg twice a day, Protonix, metoprolol tartrate 20 mg twice a day and Levaquin. REVIEW OF SYSTEMS: RESPIRATORY SYSTEM: She has no recent wheezing, no cough. GI SYSTEM: She had abdominal pain and the abdominal mass. SYSTEM: No dysuria or hematuria. NERVOUS SYSTEM: No stroke or seizure. PHYSICAL EXAMINATION: She is an 81-year-old female, alert, oriented, complaining of abdominal discomfort. Blood pressure 125/50 with a heart rate in the 110s. HEAD: Normocephalic. EYES: Sclerae nonicteric. NECK: Good upstroke. No JVD. LUNGS: Clear to auscultation anteriorly. HEART: Regular rate and rhythm, S1, S2, no S3 with systolic murmur at the base. No diastolic murmur. ABDOMEN: Soft, tender, hypoactive bowel sounds. EXTREMITIES: No edema. Lab data revealed a hemoglobin of 9.3, white blood cell of 16.3, BUN and creatinine of 14 and 0.9, potassium of 5.4. IMPRESSION: 1. Status post right hemicolectomy. 2. Sinus tachycardia, most likely related to the pain and the abdominal surgery. 3. History of hypertension. RECOMMENDATION: From the cardiac standpoint, the EKG shows a right bundle branch block that was noted in the past with no acute ST segment changes. Will follow her lab data. She will be further evaluated regarding abdominal status by the surgeon. She will continue on beta jesus and depending on her progress , further recommendation will be made. Thank you for this consult, will follow with you. RUBY
[2016-12-25] MEDS: SODIUM CHLORIDE 0.9% 1,000 ML IV SCH ×3 (01:53→21:59)
[2016-12-25] MEDS: HYDROmorphone 1 MG/ML 1 ML SYRINGE IVP PRN ×2 (02:23→05:20)
[2016-12-25 07:14] LABS: Anisocytosis Slight; Basophils % (A) 0 %; CH 26.9; CHCM 30.1; Eosinophils # (A) 0.1 k/uL (0-0.7); Eosinophils % (A) 1 %; HCT 25.3 % (34.0-46.0); HDW 2.41; Hypochromasia Moderate; Luc # (Auto) 0.16; Luc % (Auto) 1; Lymphocytes % (A) 6 %; MCH 27.3 pg (25.0-35.0); MCHC 30.3 g/dL (31.0-37.0); MCV 89.8 fL (80.0-100.0); Mean Platelet Volume 8.4; Monocytes # (A) 0.7 k/uL (0-1.0); Monocytes % (A) 4 %; Neutrophils # (A) 15.4 k/uL (1.3-7.7); Neutrophils % (A) 89 %; RBC 2.82 m/uL (3.80-5.40); RDW 16.6 % (11.5-15.5); WBC 17.3 k/uL (3.8-10.6)
[2016-12-25 07:18] LABS: ALT 22 U/L (9-52); AST 29 U/L (14-36); Alkaline Phosphatase 52 U/L (38-126); Anion Gap 5 mmol/L; Blood Urea Nitrogen 12 mg/dL (7-17); Calcium 8.4 mg/dL (8.4-10.2); Carbon Dioxide 23 mmol/L (22-30); Chloride 104 mmol/L (98-107); Glucose 96 mg/dL (74-99); Non-African American GFR(MDRD) >60 (>60 ml/min/1.73 sqM); Sodium 132 mmol/L (137-145); Total Bilirubin 0.8 mg/dL (0.2-1.3); Total Protein 4.7 g/dL (6.3-8.2)
[2016-12-25 07:22] LABS: Potassium 4.4 mmol/L (3.5-5.1)
[2016-12-25 07:25] LABS: HGB 7.7 gm/dL (11.4-16.0)
[2016-12-25] MEDS: LACTATED RINGERS 1,000 ML IV SCH ×2 (07:54→14:42)
[2016-12-25] MEDS ORDERED: METOPROLOL TARTRATE 5 MG/5 ML VIAL IVP SCH (08:45)
[2016-12-25] MEDS ORDERED: FAMOTIDINE 20 MG/2 ML VIAL IV SCH (09:00)
[2016-12-25] MEDS: METOPROLOL TARTRATE 50 MG TAB PO SCH ×2 (09:41→21:58)
[2016-12-25] MEDS: ALVIMOPAN 12 MG CAPSULE PO SCH ×2 (09:41→21:58)
[2016-12-25] MEDS: HEPARIN SODIUM,PORCINE 5,000 UNIT/ML 1 ML VIAL SQ SCH ×3 (09:43→23:34)
[2016-12-25] MEDS: ESOMEPRAZOLE 20 MG in SODIUM CHLORIDE 0.9% 50 ML IVPB SCH (09:47)
[2016-12-25] MEDS ORDERED: SODIUM CHLORIDE 0.9% 1,000 ML IV SCH (11:45)
--- NOTE | 2016-12-25 11:50 | P.PN ---
Subjective Principal diagnosis: Right colon cancer 81 years old female status post right hemicolectomy and liver bx postop day # 1.Pain is well controlled. Denies any nausea or vomiting. Patient has known baseline dementia. Sinus tachycardia with heart rate between 110 to 130s. Metoprolol was started and cardiac consultation obtained. Urine output more than 300 mL every shift. Mccoy catheter present and has clear output Objective - Vital Signs Vital signs: Vital Signs Temp 97.0 F L 12/24/16 07:00 Pulse 134 H 12/24/16 08:00 Resp 16 12/24/16 08:00 BP 125/59 12/24/16 07:00 Pulse Ox 96 12/24/16 07:00 Intake & Output 12/23/16 12/24/16 12/24/16 18:59 06:59 18:59 Intake Total 2456 100 Output Total 530 450 Balance 1926 -350 Weight 56.8 kg Intake: IV 2456 Oral 100 Output: Urine 230 450 Estimated Blood Loss 300 Other: Voiding Method Indwelling Catheter Indwelling Catheter Indwelling Catheter - Exam HEENT: No pallor, no icterus. Chest: Bilateral equal breath sounds present. No wheezes, no crackles. Cardiovascular: Regular rate and rhythm. Abdomen: Dressing clean and intact Integumentary: No active ulcers or discharge. Neurologic: Cranial nerves II-XII intact. Strength upper and lower extremities 5/5. No focal neurologic deficits. Gait is normal. Psychiatric: Has dementia and poor short term memory - Labs CBC & Chem 7: 12/25/16 06:46 12/25/16 06:46 Labs: Abnormal Lab Results - Last 24 Hours (Table) 12/24/16 12/24/16 Range/Units 06:58 06:58 WBC 16.3 H (3.8-10.6) k/uL RBC 3.36 L (3.80-5.40) m/uL Hgb 9.3 L (11.4-16.0) gm/dL Hct 29.9 L (34.0-46.0) % RDW 16.3 H (11.5-15.5) % Neutrophils # 14.7 H (1.3-7.7) k/uL Lymphocytes # 0.9 L (1.0-4.8) k/uL Sodium 136 L (137-145) mmol/L Potassium 5.4 H (3.5-5.1) mmol/L Glucose 128 H (74-99) mg/dL Assessment and Plan (1) Anemia Status: Acute (2) Cecum mass Status: Acute (3) Colon polyps Status: Acute (4) Hypertension Status: Acute Plan: 1. Hyperkalemia. Change IV fluids 0.9% normal saline 2. 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 Sinus tachycardia . Reactive secondary to pain. Cardiology consult 4. DC mccoy 5. COnsult PT/OT 6. Will need rehab at discharge 7. ICe chips and popsicles
--- NOTE | 2016-12-25 11:55 | P.PN ---
Subjective Principal diagnosis: Right colon cancer 81 years old female status post right hemicolectomy and liver bx postop day # 2.Pain is well controlled. Denies any nausea or vomiting. Patient has known baseline dementia. Sinus tachycardia with heart rate between 110 to 120s. Metoprolol was started and cardiology recommendations noted . Urine output more than 300 mL every shift. Ambulating in hallways. Patient has dementia and history unreliable. Able to use IS but can pull only 500 ml. Objective - Vital Signs Vital signs: Vital Signs Temp 98.9 F 12/25/16 07:32 Pulse 117 H 12/25/16 07:59 Resp 20 12/25/16 07:59 BP 122/53 12/25/16 07:32 Pulse Ox 90 L 12/25/16 07:32 Intake & Output 12/24/16 12/25/16 12/25/16 18:59 06:59 18:59 Intake Total 300 1500 Output Total 850 150 Balance -550 1350 Weight 56.8 kg 56.8 kg Intake: IV 300 1500 Lactated Ringers 1,000 ml 300 @ 100 mls/hr IV .Q10H LIBAN Rx#:[id number] Sodium Chloride 0.9% 1, 1500 000 ml @ 125 mls/hr IV . Q8H LIBAN Rx#:[id number] Output: Urine 850 150 Uretheral (Medeiros) 850 Other: Voiding Method Indwelling Catheter Toilet Toilet # Voids 2 2 - Exam HEENT: No pallor, no icterus. Chest: Bilateral equal breath sounds present. No wheezes, no crackles. Cardiovascular: Regular rate and rhythm. Abdomen: Incision- clean, leticia drain in lower part of the incision Integumentary: No active ulcers or discharge. Neurologic: Cranial nerves II-XII intact. Strength upper and lower extremities 5/5. No focal neurologic deficits. Gait is normal. Psychiatric: Has dementia and poor short term memory - Labs CBC & Chem 7: 12/25/16 06:46 12/25/16 06:46 Labs: Abnormal Lab Results - Last 24 Hours (Table) 12/25/16 12/25/16 Range/Units 06:46 06:46 WBC 17.3 H (3.8-10.6) k/uL RBC 2.82 L (3.80-5.40) m/uL Hgb 7.7 L D (11.4-16.0) gm/dL Hct 25.3 L (34.0-46.0) % MCHC 30.3 L (31.0-37.0) g/dL RDW 16.6 H (11.5-15.5) % Neutrophils # 15.4 H (1.3-7.7) k/uL Sodium 132 L (137-145) mmol/L Total Protein 4.7 L (6.3-8.2) g/dL Albumin 2.2 L (3.5-5.0) g/dL Assessment and Plan (1) Anemia Status: Acute (2) Cecum mass Status: Acute (3) Colon polyps Status: Acute (4) Hypertension Status: Acute Plan: 1. Hyponatremia. Change IV fluids 0.9% normal saline@100 ml/hr 2. 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 Sinus tachycardia . Reactive secondary to pain. Cardiology consult noted 4. Ofirmev and Toradol for pain 5. Consult PT/OT 6. Will need rehab at discharge 7. ICe chips and popsicles 8. If Hb decreases further and patient has persistent tachycardia, consider transfusing 1UNIT PRBC 9. CBC, CMP and type and cross 1 unit in am 12/26/16 10. Encourage IS use
[2016-12-25] MEDS ORDERED: KETOROLAC 30 MG/ML 1 ML VIAL ONE (12:27)
[2016-12-25] MEDS: KETOROLAC 30 MG/ML 1 ML VIAL IVP SCH ×2 (12:28→21:56)
[2016-12-25] MEDS: ACETAMINOPHEN IV (For NPO) 1,000 MG in EMPTY BAG 1 BAG IVPB SCH ×3 (12:28→23:28)
--- NOTE | 2016-12-25 12:43 | XR ---
EXAMINATION TYPE: XR chest 1V DATE OF EXAM: 12/25/2016 COMPARISON: 12/11/2016 HISTORY: Shortness of breath TECHNIQUE: Single frontal view of the chest is obtained. FINDINGS: Postsurgical change involving the left clavicle and bilateral shoulders. Underlying COPD a nd cardiomegaly are noted with left basilar infiltrate. No overt failure. No pneumothorax. Atheroscle rotic change aorta. In the upper abdomen there are surgical clips. There appear to be dilated bowel loops in surgical sta ples. IMPRESSION: 1. Left basilar infiltrate appears new from previous exam. 2. Correlate for COPD. 3. Dilated bowel loops in the abdomen with evidence of some overlying surgical iraida. Ileus or obst ruction in the differential diagnosis. Could not exclude a small amount of free intraperitoneal air. Report called to patient's nurse. Patient reported by nurse to have recent surgery.
--- NOTE | 2016-12-25 13:18 | PN ---
Mrs. Goins is an 81 year female who underwent right colectomy for cecal mass. She appears to be more confused today. She denies any symptoms of chest pain but she is not eating yet. She is having ice chips. She is refusing her oral medications. Hemodynamically she continues to have episodes of sinus tachycardia. She otherwise was supposed to be on Metoprolol tartrate 100 mg twice a day which she has not been taking. Physical examination: Blood pressure 122/50. Heart rate in the one teens. Lungs clear. Heart tachycardic, S1, S2. No S3 with systolic murmur. Abdomen is soft. Positive bowel sounds. Extremities no edema. Lab data: Revealed hemoglobin 7.7, BUN and creatinine 12 and 0.69. white blood cell count 17.3. IMPRESSION: 1. Status post right colectomy. 2. History of hypertension. 3. History of confusion, worsened today. 4. Sinus tachycardia most likely related to the fact that she has not been taking her beta jesus as well as the fact that she has abdominal discomfort and anemia. RECOMMENDATIONS: I will switch her to IV beta jesus until her oral intake improves. Otherwise, she will be evaluated by the surgeon regarding the need to receive transfusion. RUBY
[2016-12-25 15:27] LABS: Anisocytosis Slight; CH 26.6; CHCM 30.5; HCT 21.4 % (34.0-46.0); HDW 2.47; Hypochromasia Moderate; MCH 27.9 pg (25.0-35.0); MCHC 31.8 g/dL (31.0-37.0); MCV 87.6 fL (80.0-100.0); Mean Platelet Volume 7.7; RBC 2.45 m/uL (3.80-5.40); RDW 16.4 % (11.5-15.5); WBC 15.5 k/uL (3.8-10.6)
[2016-12-25 15:38] LABS: HGB 6.8 gm/dL (11.4-16.0)
--- NOTE | 2016-12-25 17:04 | P.PN ---
Subjective Principal diagnosis: abdominal pain improved. 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 We' ll repeat basic metabolic profile tomorrow. In patient's IV fluids are being changed to lactated Ringer's. Her heart rate improved. Objective - Vital Signs Vital signs: Vital Signs Temp 98.9 F 12/25/16 07:32 Pulse 117 H 12/25/16 16:00 Resp 20 12/25/16 16:00 BP 122/53 12/25/16 07:32 Pulse Ox 90 L 12/25/16 07:32 Intake & Output 12/24/16 12/25/16 12/25/16 18:59 06:59 18:59 Intake Total 300 1500 Output Total 850 150 Balance -550 1350 Weight 56.8 kg 56.8 kg Intake: IV 300 1500 Lactated Ringers 1,000 ml 300 @ 100 mls/hr IV .Q10H [facility] Rx#:[id number] Sodium Chloride 0.9% 1, 1500 000 ml @ 125 mls/hr IV . Q8H [facility] Rx#:[id number] Output: Urine 850 150 Uretheral (Medeiros) 850 Other: Voiding Method Indwelling Catheter Toilet Toilet # Voids 2 2 - Exam GENERAL: The patient is alert and oriented x3, not in any acute distress. Well developed, well nourished. HEENT: Pupils are round and equally reacting to light. EOMI. No scleral icterus. No conjunctival pallor. Normocephalic, atraumatic. No pharyngeal erythema. No thyromegaly. CARDIOVASCULAR: S1 and S2 present. No murmurs, rubs, or gallops. PULMONARY: Chest is clear to auscultation, no wheezing or crackles. ABDOMEN: Absent bowel sounds, postsurgically pack the surgical site area appears to be clean MUSCULOSKELETAL: No joint swelling or deformity. EXTREMITIES: No cyanosis, clubbing, or pedal edema. NEUROLOGICAL: Gross neurological examination did not reveal any focal deficits. SKIN: No rashes. - Labs CBC & Chem 7: 12/25/16 15:07 12/25/16 06:46 Labs: Abnormal Lab Results - Last 24 Hours (Table) 12/23/16 12/25/16 12/25/16 Range/Units 10:46 06:46 06:46 WBC 17.3 H (3.8-10.6) k/uL RBC 2.82 L (3.80-5.40) m/uL Hgb 7.7 L D (11.4-16.0) gm/dL Hct 25.3 L (34.0-46.0) % MCHC 30.3 L (31.0-37.0) g/dL RDW 16.6 H (11.5-15.5) % Neutrophils # 15.4 H (1.3-7.7) k/uL Sodium 132 L (137-145) mmol/L Total Protein 4.7 L (6.3-8.2) g/dL Albumin 2.2 L (3.5-5.0) g/dL Crossmatch See Detail 12/25/16 Range/Units 15:07 WBC 15.5 H (3.8-10.6) k/uL RBC 2.45 L (3.80-5.40) m/uL Hgb 6.8 L* (11.4-16.0) gm/dL Hct 21.4 L (34.0-46.0) % MCHC (31.0-37.0) g/dL RDW 16.4 H (11.5-15.5) % Neutrophils # (1.3-7.7) k/uL Sodium (137-145) mmol/L Total Protein (6.3-8.2) g/dL Albumin (3.5-5.0) g/dL Crossmatch Assessment and Plan Plan: 1hyponatremia: 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 2 sinus tachycardia: Secondary to reflex tachycardia, metoprolol was restarted back.heart sinus tachycardia improved 3 hypertension and metoprolol can be restarted, hold off amlodipine to prevent perioperative hypotension related complications. 4 mild hyperkalemia: Repeat potassium tomorrow. Addressed if it's still elevated tomorrow 5 right hemicolectomy: Pain management and DVT prophylaxis per primary service. Patient has colon cancer.
[2016-12-25 21:15] LABS: Anisocytosis Slight; Basophils % (A) 0 %; CH 28.2; CHCM 31.6; Eosinophils # (A) 0.1 k/uL (0-0.7); Eosinophils % (A) 1 %; HCT 26.1 % (34.0-46.0); HDW 3.18; Hypochromasia Slight; Luc # (Auto) 0.18; Luc % (Auto) 1; Lymphocytes # (A) 1.1 k/uL (1.0-4.8); Lymphocytes % (A) 8 %; MCH 29.8 pg (25.0-35.0); MCHC 33.2 g/dL (31.0-37.0); MCV 89.6 fL (80.0-100.0); Mean Platelet Volume 8.1; Monocytes # (A) 0.5 k/uL (0-1.0); Monocytes % (A) 4 %; Neutrophils # (A) 11.1 k/uL (1.3-7.7); Neutrophils % (A) 86 %; RBC 2.91 m/uL (3.80-5.40); RDW 16.6 % (11.5-15.5); WBC (Perox) 12.75
[2016-12-25 21:16] LABS: HGB 8.7 gm/dL (11.4-16.0)
[2016-12-26] MEDS: KETOROLAC 30 MG/ML 1 ML VIAL IVP SCH ×4 (00:46→18:55)
[2016-12-26] MEDS: ACETAMINOPHEN IV (For NPO) 1,000 MG in EMPTY BAG 1 BAG IVPB SCH (05:48)
[2016-12-26] MEDS: SODIUM CHLORIDE 0.9% 1,000 ML IV SCH ×4 (06:24→21:13)
[2016-12-26 07:14] LABS: Anisocytosis Slight; Basophils % (A) 0 %; CH 27.6; CHCM 31.5; Eosinophils # (A) 0.2 k/uL (0-0.7); Eosinophils % (A) 1 %; HCT 27.7 % (34.0-46.0); HDW 3.39; HGB 8.8 gm/dL (11.4-16.0); Hypochromasia Moderate; Luc # (Auto) 0.17; Luc % (Auto) 1; Lymphocytes # (A) 0.9 k/uL (1.0-4.8); Lymphocytes % (A) 6 %; MCH 28.1 pg (25.0-35.0); MCHC 31.9 g/dL (31.0-37.0); Mean Platelet Volume 7.8; Monocytes # (A) 0.6 k/uL (0-1.0); Monocytes % (A) 4 %; Neutrophils # (A) 11.9 k/uL (1.3-7.7); Neutrophils % (A) 87 %; RBC 3.15 m/uL (3.80-5.40); RDW 16.1 % (11.5-15.5); WBC 13.7 k/uL (3.8-10.6); WBC (Perox) 14.06
[2016-12-26 07:25] LABS: ALT 24 U/L (9-52); AST 17 U/L (14-36); Alkaline Phosphatase 77 U/L (38-126); Anion Gap 4 mmol/L; Blood Urea Nitrogen 12 mg/dL (7-17); Calcium 8.5 mg/dL (8.4-10.2); Carbon Dioxide 24 mmol/L (22-30); Chloride 108 mmol/L (98-107); Glucose 88 mg/dL (74-99); Non-African American GFR(MDRD) >60 (>60 ml/min/1.73 sqM); Potassium 3.7 mmol/L (3.5-5.1); Sodium 136 mmol/L (137-145); Total Bilirubin 0.6 mg/dL (0.2-1.3); Total Protein 4.3 g/dL (6.3-8.2)
[2016-12-26] MEDS: ESOMEPRAZOLE 20 MG in SODIUM CHLORIDE 0.9% 50 ML IVPB SCH (08:40)
[2016-12-26] MEDS: HEPARIN SODIUM,PORCINE 5,000 UNIT/ML 1 ML VIAL SQ SCH ×2 (08:40→15:51)
[2016-12-26] MEDS: ALVIMOPAN 12 MG CAPSULE PO SCH ×2 (08:40→21:14)
[2016-12-26] MEDS: METOPROLOL TARTRATE 50 MG TAB PO SCH (08:41)
--- NOTE | 2016-12-26 13:04 | P.PN ---
Subjective Mrs. Goins is an 81-year-old female being seen in consultation. She underwent right colectomy Dr. Bonner for obstructive mass. She is seen today sitting up in the chair, appears in no acute distress. She denies any symptoms of chest pain, shortness of breath, dizziness, nausea, vomiting or palpitations. She states she has not started passing gas or having bowel movements. She is currently tolerating ice chips and popsicles. She is taking her medication as prescribed. Continues to have periods of confusion. Her heart rate on the monitor is a sinus mechanism in the 70s. Blood pressure has been running low with systolic in the 90s. She is currently on metoprolol tatrate 100 mg twice a day. Objective - Vital Signs Vital signs: Vital Signs Temp 97.8 F 12/26/16 07:00 Pulse 74 12/26/16 07:00 Resp 16 12/26/16 07:00 BP 96/60 12/26/16 07:00 Pulse Ox 97 12/26/16 07:00 Intake & Output 12/25/16 12/26/16 12/26/16 18:59 06:59 18:59 Intake Total 0 1210 Balance 0 1210 Weight 56.8 kg 56.8 kg Intake: IV 800 Sodium Chloride 0.9% 1, 800 000 ml @ 100 mls/hr IV . Q10H [facility] Rx#:[id number] Oral 100 Blood Product 0 310 Rc As-1 Unit 0 310 [id number] Other: Voiding Method Toilet Toilet Toilet Bedside Commode # Voids 2 2 - Constitutional General appearance: Present: cooperative, no acute distress - Respiratory Respiratory: bilateral: CTA - Cardiovascular Rhythm: regular Heart sounds: normal: S1, S2 - Gastrointestinal General gastrointestinal: Present: normal bowel sounds, soft Localized gastrointestinal: tender: diffuse - Labs CBC & Chem 7: 12/26/16 06:44 12/26/16 06:44 Labs: Abnormal Lab Results - Last 24 Hours (Table) 12/23/16 12/25/16 12/25/16 Range/Units 10:46 15:07 20:54 WBC 15.5 H 13.0 H (3.8-10.6) k/uL RBC 2.45 L 2.91 L (3.80-5.40) m/uL Hgb 6.8 L* 8.7 L D (11.4-16.0) gm/dL Hct 21.4 L 26.1 L (34.0-46.0) % RDW 16.4 H 16.6 H (11.5-15.5) % Neutrophils # 11.1 H (1.3-7.7) k/uL Lymphocytes # (1.0-4.8) k/uL Sodium (137-145) mmol/L Chloride (98-107) mmol/L Total Protein (6.3-8.2) g/dL Albumin (3.5-5.0) g/dL Crossmatch See Detail 12/26/16 12/26/16 Range/Units 06:44 06:44 WBC 13.7 H (3.8-10.6) k/uL RBC 3.15 L (3.80-5.40) m/uL Hgb 8.8 L (11.4-16.0) gm/dL Hct 27.7 L (34.0-46.0) % RDW 16.1 H (11.5-15.5) % Neutrophils # 11.9 H (1.3-7.7) k/uL Lymphocytes # 0.9 L (1.0-4.8) k/uL Sodium 136 L (137-145) mmol/L Chloride 108 H (98-107) mmol/L Total Protein 4.3 L (6.3-8.2) g/dL Albumin 1.9 L (3.5-5.0) g/dL Crossmatch Assessment and Plan (1) S/P right colectomy Status: Acute (2) Cecum mass Status: Acute (3) Essential (primary) hypertension Status: Chronic (4) Sinus tachycardia Status: Resolved Plan: Hemoglobin is stable at 8.8, no transfusion required per surgery. Blood pressure running in the mid to low 90s, will decrease Lopressor 75 mg twice a day. Encouraged monitored ambulation.
--- NOTE | 2016-12-26 14:00 | P.PN ---
Subjective Principal diagnosis: abdominal pain improved. 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 We' ll repeat basic metabolic profile tomorrow. In patient's IV fluids are being changed to lactated Ringer's. Her heart rate improved. 12/26/2016 Patient did not move her bowels yet had abdominal pain is controlled, all narcotic and GC was discontinued her confusion improved and sodium improved. Patient denied any significant abdominal pain, fever, dysuria, chest pain or shortness of breath, lightheadedness Objective - Vital Signs Vital signs: Vital Signs Temp 97.8 F 12/26/16 07:00 Pulse 74 12/26/16 07:00 Resp 16 12/26/16 07:00 BP 96/60 12/26/16 07:00 Pulse Ox 97 12/26/16 07:00 Intake & Output 12/25/16 12/26/16 12/26/16 18:59 06:59 18:59 Intake Total 0 1210 Balance 0 1210 Weight 56.8 kg 56.8 kg Intake: IV 800 Sodium Chloride 0.9% 1, 800 000 ml @ 100 mls/hr IV . Q10H [facility] Rx#:[id number] Oral 100 Blood Product 0 310 Rc As-1 Unit 0 310 [id number] Other: Voiding Method Toilet Toilet Toilet Bedside Commode # Voids 2 2 - Exam GENERAL: The patient is alert and oriented x3, not in any acute distress. Well developed, well nourished. HEENT: Pupils are round and equally reacting to light. EOMI. No scleral icterus. No conjunctival pallor. Normocephalic, atraumatic. No pharyngeal erythema. No thyromegaly. CARDIOVASCULAR: S1 and S2 present. No murmurs, rubs, or gallops. PULMONARY: Chest is clear to auscultation, no wheezing or crackles. ABDOMEN: Absent bowel sounds, postsurgically pack the surgical site area appears to be clean MUSCULOSKELETAL: No joint swelling or deformity. EXTREMITIES: No cyanosis, clubbing, or pedal edema. NEUROLOGICAL: Gross neurological examination did not reveal any focal deficits. SKIN: No rashes. - Labs CBC & Chem 7: 12/26/16 06:44 12/26/16 06:44 Labs: Abnormal Lab Results - Last 24 Hours (Table) 12/23/16 12/25/16 12/25/16 Range/Units 10:46 15:07 20:54 WBC 15.5 H 13.0 H (3.8-10.6) k/uL RBC 2.45 L 2.91 L (3.80-5.40) m/uL Hgb 6.8 L* 8.7 L D (11.4-16.0) gm/dL Hct 21.4 L 26.1 L (34.0-46.0) % RDW 16.4 H 16.6 H (11.5-15.5) % Neutrophils # 11.1 H (1.3-7.7) k/uL Lymphocytes # (1.0-4.8) k/uL Sodium (137-145) mmol/L Chloride (98-107) mmol/L Total Protein (6.3-8.2) g/dL Albumin (3.5-5.0) g/dL Crossmatch See Detail 12/26/16 12/26/16 Range/Units 06:44 06:44 WBC 13.7 H (3.8-10.6) k/uL RBC 3.15 L (3.80-5.40) m/uL Hgb 8.8 L (11.4-16.0) gm/dL Hct 27.7 L (34.0-46.0) % RDW 16.1 H (11.5-15.5) % Neutrophils # 11.9 H (1.3-7.7) k/uL Lymphocytes # 0.9 L (1.0-4.8) k/uL Sodium 136 L (137-145) mmol/L Chloride 108 H (98-107) mmol/L Total Protein 4.3 L (6.3-8.2) g/dL Albumin 1.9 L (3.5-5.0) g/dL Crossmatch Assessment and Plan Plan: 1hyponatremia: 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 4 mild hyperkalemia: Repeat potassium tomorrow. Addressed if it's still elevated tomorrow 5 right hemicolectomy: Pain management and DVT prophylaxis per primary service. Patient has colon cancer.
[2016-12-27] MEDS: KETOROLAC 30 MG/ML 1 ML VIAL IVP SCH ×2 (00:08→06:27)
[2016-12-27] MEDS: HEPARIN SODIUM,PORCINE 5,000 UNIT/ML 1 ML VIAL SQ SCH ×3 (00:10→16:04)
[2016-12-27] MEDS: METOPROLOL TARTRATE 25 MG TAB PO SCH ×3 (00:29→20:18)
--- NOTE | 2016-12-27 08:11 | P.PN ---
Subjective Principal diagnosis: Right colon cancer 81 years old female status post right hemicolectomy and liver bx postop day # 3.Pain is well controlled. Denies any nausea or vomiting. Patient has known baseline dementia. Sinus tachycardia - resolved after 1 Unit PRBC transfusion .Urine output more than 300 mL every shift. Ambulating in hallways. Patient has dementia and history unreliable. Able to use IS but can pull only 1000 ml. Small liquid BM Objective - Vital Signs Vital signs: Vital Signs Temp 98.4 F 12/27/16 07:00 Pulse 95 12/27/16 07:00 Resp 16 12/27/16 07:00 BP 121/59 12/27/16 07:00 Pulse Ox 94 L 12/27/16 07:00 Intake & Output 12/26/16 12/27/16 12/27/16 18:59 06:59 18:59 Intake Total 225 Balance 225 Weight 56.8 kg Intake: IV 225 Sodium Chloride 0.9% 1, 225 000 ml @ 75 mls/hr IV . [id number] [facility] Rx#:[id number] Other: Voiding Method Toilet # Voids 1 3 # Bowel Movements 1 4 - Exam HEENT: No pallor, no icterus. Chest: Bilateral equal breath sounds present. No wheezes, no crackles. Cardiovascular: Regular rate and rhythm. Abdomen: Incision- clean, leticia drain in lower part of the incision Integumentary: No active ulcers or discharge. Neurologic: Cranial nerves II-XII intact. Strength upper and lower extremities 5/5. No focal neurologic deficits. Gait is normal. Psychiatric: Has dementia and poor short term memory - Labs CBC & Chem 7: 12/26/16 06:44 12/26/16 06:44 Assessment and Plan (1) Anemia Status: Acute (2) Cecum mass Status: Acute (3) Colon polyps Status: Acute (4) Hypertension Status: Acute Plan: 1. Change IV fluids 0.9% normal saline@75ml/hr 2. 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 Sinus tachycardia - resolved 4. Ofirmev and Toradol for pain 5. Consult PT/OT 6. Will need rehab at discharge 7. CLD
[2016-12-27] MEDS: ESOMEPRAZOLE 20 MG in SODIUM CHLORIDE 0.9% 50 ML IVPB SCH (08:26)
--- NOTE | 2016-12-27 09:42 | P.PN ---
Subjective Principal diagnosis: Right colon cancer 81 years old female status post right hemicolectomy and liver bx postop day # 4.Pain is well controlled. Denies any nausea or vomiting. Patient has known baseline dementia. Sinus tachycardia - resolved after 1 Unit PRBC transfusion .Urine output more than 300 mL every shift. Ambulating in hallways. Patient has dementia and history unreliable. Multiple BMs. Objective - Vital Signs Vital signs: Vital Signs Temp 98.4 F 12/27/16 07:00 Pulse 95 12/27/16 07:00 Resp 16 12/27/16 07:00 BP 121/59 12/27/16 07:00 Pulse Ox 94 L 12/27/16 07:00 Intake & Output 12/26/16 12/27/16 12/27/16 18:59 06:59 18:59 Intake Total 225 Balance 225 Weight 56.8 kg Intake: IV 225 Sodium Chloride 0.9% 1, 225 000 ml @ 75 mls/hr IV . [id number] [facility] Rx#:[id number] Other: Voiding Method Toilet Toilet # Voids 1 3 # Bowel Movements 1 4 - Exam HEENT: No pallor, no icterus. Chest: Bilateral equal breath sounds present. No wheezes, no crackles. Cardiovascular: Regular rate and rhythm. Abdomen: Incision- clean, leticia drain in lower part of the incision Integumentary: No active ulcers or discharge. Neurologic: Cranial nerves II-XII intact. Strength upper and lower extremities 5/5. No focal neurologic deficits. Gait is normal. Psychiatric: Has dementia and poor short term memory - Labs CBC & Chem 7: 12/26/16 06:44 12/26/16 06:44 Assessment and Plan (1) Anemia Status: Acute (2) Cecum mass Status: Acute (3) Colon polyps Status: Acute (4) Hypertension Status: Acute Plan: 1. Heplock IV 2. 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 Sinus tachycardia - resolved 4. Oral Tyelenol and Motrin for pain 5. Soft diet 6. Discharge to ECF/rehab on 12/28/16 am
[2016-12-27 12:11] LABS: Appearance,Urine Clear (Clear); Bacteria,Urine Rare /hpf; Bilirubin,Urine Negative (Negative); Glucose,Urine (UA) Negative (Negative); Ketones,Urine 1+ (Negative); Leukocyte Esterase,Urine Trace (Negative); Mucus,Urine Moderate /hpf; Nitrite,Urine Negative (Negative); PH, Urine 5.5 (5.0-8.0); Particle Count 7722; Protein,Urine Trace (Negative); RBC,Urine 1 /hpf (0-5); Specific Gravity,Urine 1.015 (1.001-1.035); Squamous Epithelial Cell,Urine 1 /hpf (0-4); UA Billing (MACRO vs. MICRO) MICRO; Urobilinogen,Urine <2.0 mg/dL (<2.0); WBC,Urine 3 /hpf (0-5)
--- NOTE | 2016-12-27 14:04 | P.PN ---
Progress Note - Text INTERVAL HISTORY: The patient is a 81-year-old female with right colectomy per Dr. Bonner for obstructive mass. Upon examination today she is seen sitting up in the chair reading a newspaper in no apparent distress. She denies any symptoms of chest pain, shortness of breath, dizziness, nausea, vomiting or palpitations. She states that she had a bowel movement and is tolerating PO intake. PHYSICAL EXAMINATION: Blood pressure 121/59, heart rate 95, respirations 16, temp 98.4, she is 94 % on room air. HEART: S1, S2 normal. Regular rate and rhythm. LUNGS: Clear to auscultation. NECK: Supple. ABDOMEN: Soft, non-tender, positive bowel sounds. EXTREMITIES: 2+ peripheral pulses. No edema. LAB DATA: Hemoglobin 8.8, potassium 3.7, BUN 12, creatinine 0.70. FINAL IMPRESSION: 1. Status post right colectomy. 2. Cecum mass, obstructive. 3. Essential primary hypertension, chronic. 4. Sinus tachycardia, resolved. PLAN: Heart rate and blood pressure tolerating decreased Lopressor. From a cardiac standpoint this patient is stable. We will continue to see the patient on an as-needed basis, please don't hesitate to call should she need re- evaluation.
[2016-12-27] MEDS: PANTOPRAZOLE 40 MG TABLET PO SCH (17:32)
[2016-12-28] MEDS: HEPARIN SODIUM,PORCINE 5,000 UNIT/ML 1 ML VIAL SQ SCH ×3 (00:19→17:41)
[2016-12-28 07:10] LABS: Anisocytosis Slight; CH 28.5; CHCM 32.4; HCT 26.3 % (34.0-46.0); HDW 3.11; HGB 8.8 gm/dL (11.4-16.0); Hypochromasia Slight; MCH 29.5 pg (25.0-35.0); MCHC 33.3 g/dL (31.0-37.0); MCV 88.6 fL (80.0-100.0); Mean Platelet Volume 8.4; RBC 2.97 m/uL (3.80-5.40); RDW 17.4 % (11.5-15.5); WBC 7.2 k/uL (3.8-10.6)
[2016-12-28 07:19] LABS: ALT 24 U/L (9-52); AST 16 U/L (14-36); Alkaline Phosphatase 72 U/L (38-126); Anion Gap 6 mmol/L; Blood Urea Nitrogen 7 mg/dL (7-17); Calcium 8.5 mg/dL (8.4-10.2); Carbon Dioxide 24 mmol/L (22-30); Chloride 106 mmol/L (98-107); Glucose 123 mg/dL (74-99); Magnesium 1.8 mg/dL (1.6-2.3); Non-African American GFR(MDRD) >60 (>60 ml/min/1.73 sqM); Sodium 136 mmol/L (137-145); Total Bilirubin 0.2 mg/dL (0.2-1.3); Total Protein 4.6 g/dL (6.3-8.2)
[2016-12-28 07:26] LABS: Potassium 2.8 mmol/L (3.5-5.1)
[2016-12-28] MEDS: METOPROLOL TARTRATE 25 MG TAB PO SCH (08:33)
[2016-12-28] MEDS: PANTOPRAZOLE 40 MG TABLET PO SCH ×2 (08:33→17:41)
[2016-12-28] MEDS ORDERED: Potassium Replacement Protocol 1 EACH MISC MISCELLANE PRN (13:01)
[2016-12-28] MEDS ORDERED: METOPROLOL TARTRATE 25 MG TAB PO STA (13:03)
--- NOTE | 2016-12-28 13:18 | P.PN ---
Subjective Principal diagnosis: Right colon cancer 81 years old female status post right hemicolectomy and liver bx postop day # 5.Pain is well controlled. Denies any nausea or vomiting. Patient has known baseline dementia. Ambulating in hallways. Patient has dementia and history unreliable. Multiple BMS- 12 yesterday , watery, non bloody. Objective - Vital Signs Vital signs: Vital Signs Temp 98.2 F 12/28/16 08:00 Pulse 104 H 12/28/16 08:00 Resp 18 12/28/16 08:00 BP 115/64 12/28/16 08:00 Pulse Ox 96 12/28/16 08:00 Intake & Output 12/27/16 12/28/16 12/28/16 18:59 06:59 18:59 Intake Total 1320 Balance 1320 Intake: Oral 1320 Other: Voiding Method Toilet Toilet # Voids 2 1 # Bowel Movements 1 - Exam HEENT: No pallor, no icterus. Chest: Bilateral equal breath sounds present. No wheezes, no crackles. Cardiovascular: Regular rate and rhythm. Abdomen: Incision- clean, leticia drain in lower part of the incision- removed Integumentary: No active ulcers or discharge. Neurologic: Cranial nerves II-XII intact. Strength upper and lower extremities 5/5. No focal neurologic deficits. Gait is normal. Psychiatric: Has dementia and poor short term memory - Labs CBC & Chem 7: 12/28/16 06:47 12/28/16 06:47 Labs: Abnormal Lab Results - Last 24 Hours (Table) 12/28/16 12/28/16 Range/Units 06:47 06:47 RBC 2.97 L (3.80-5.40) m/uL Hgb 8.8 L (11.4-16.0) gm/dL Hct 26.3 L (34.0-46.0) % RDW 17.4 H (11.5-15.5) % Sodium 136 L (137-145) mmol/L Potassium 2.8 L* (3.5-5.1) mmol/L Glucose 123 H (74-99) mg/dL Total Protein 4.6 L (6.3-8.2) g/dL Albumin 2.1 L (3.5-5.0) g/dL Assessment and Plan (1) Anemia Status: Acute (2) Cecum mass Status: Acute (3) Colon polyps Status: Acute (4) Hypertension Status: Acute (5) Malnutrition of moderate degree Status: Acute Plan: 1. Potassium replacement. Check lytes before discharge 2. 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 CHeck stool for C diff 4. Oral Tyelenol and Motrin for pain 5. Soft diet 6. Discharge to ECF/rehab on 12/28/16 provided C diff is negative and Potassium is normal 7. Lomotil for diarrhea if C diff is negative
[2016-12-28] MEDS: POTASSIUM CHLORIDE 10 MEQ, LIDOCAINE 2% INJ 10 MG in SODIUM CHLORIDE 0.9% 100 ML IVPB SCH ×3 (13:52→17:39)
--- NOTE | 2016-12-28 16:52 | P.PN ---
Subjective Principal diagnosis: abdominal pain improved. 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 We' ll repeat basic metabolic profile tomorrow. In patient's IV fluids are being changed to lactated Ringer's. Her heart rate improved. 12/26/2016 Patient did not move her bowels yet had abdominal pain is controlled, all narcotic and GC was discontinued her confusion improved and sodium improved. 12/28/2016 Patient started having diarrhea C. diff is being obtained today. Patient is Parrish tachycardic and patient was resumed back her her home dose of metoprolol. Will monitor overnight. Patient denied any significant abdominal pain, fever, dysuria, chest pain or shortness of breath, lightheadedness Objective - Vital Signs Vital signs: Vital Signs Temp 97.6 F 12/28/16 15:00 Pulse 92 12/28/16 16:00 Resp 16 12/28/16 16:00 BP 130/60 12/28/16 15:00 Pulse Ox 97 12/28/16 15:00 Intake & Output 12/27/16 12/28/16 12/28/16 18:59 06:59 18:59 Intake Total 1320 Balance 1320 Intake: Oral 1320 Other: Voiding Method Toilet Toilet # Voids 2 3 # Bowel Movements 1 2 - Exam GENERAL: The patient is alert and oriented x3, not in any acute distress. Well developed, well nourished. HEENT: Pupils are round and equally reacting to light. EOMI. No scleral icterus. No conjunctival pallor. Normocephalic, atraumatic. No pharyngeal erythema. No thyromegaly. CARDIOVASCULAR: S1 and S2 present. No murmurs, rubs, or gallops. PULMONARY: Chest is clear to auscultation, no wheezing or crackles. ABDOMEN: bowel sounds present, postsurgically pack the surgical site area appears to be clean MUSCULOSKELETAL: No joint swelling or deformity. EXTREMITIES: No cyanosis, clubbing, or pedal edema. NEUROLOGICAL: Gross neurological examination did not reveal any focal deficits. SKIN: No rashes. - Labs CBC & Chem 7: 12/28/16 06:47 12/28/16 06:47 Labs: Abnormal Lab Results - Last 24 Hours (Table) 07/22/17 07/22/17 Range/Units 06:47 06:47 RBC 2.97 L (3.80-5.40) m/uL Hgb 8.8 L (11.4-16.0) gm/dL Hct 26.3 L (34.0-46.0) % RDW 17.4 H (11.5-15.5) % Sodium 136 L (137-145) mmol/L Potassium 2.8 L* (3.5-5.1) mmol/L Glucose 123 H (74-99) mg/dL Total Protein 4.6 L (6.3-8.2) g/dL Albumin 2.1 L (3.5-5.0) g/dL Assessment and Plan Plan: 1hyponatremia: Hypovolemic hyponatremia improved with IV fluids. 2 sinus tachycardia: Improved with resuming home dose of metoprolol. 3 hypertension and metoprolol can be restarted, hold off amlodipine to prevent perioperative hypotension related complications. 4 mild hyperkalemia: Repeat potassium tomorrow. Addressed if it's still elevated tomorrow 5 right hemicolectomy: Pain management and DVT prophylaxis per primary service. Patient has colon cancer. 6 diarrhea for which we're getting C. diff testing.
[2016-12-28] MEDS: IBUPROFEN 400 MG TAB PO PRN (17:44)
[2016-12-28] MEDS: METOPROLOL TARTRATE 50 MG TAB PO SCH (20:05)
[2016-12-29] MEDS: HEPARIN SODIUM,PORCINE 5,000 UNIT/ML 1 ML VIAL SQ SCH ×3 (00:40→18:15)
[2016-12-29 08:30] LABS: Magnesium 1.9 mg/dL (1.6-2.3); Potassium 3.5 mmol/L (3.5-5.1)
[2016-12-29] MEDS: PANTOPRAZOLE 40 MG TABLET PO SCH ×2 (08:35→18:15)
--- NOTE | 2016-12-29 09:09 | P.DS ---
Providers Date of admission: 12/23/16 10:02 Expected date of discharge: 12/28/16 Attending physician: Catina Bonner Consults: 12/23/16 15:02 Consult Physician Routine Consulting Provider: Amaya Adams Consult Reason/Comments: medical management Do you want consulting provider notified?: Yes Primary care physician: Stated None - Discharge Diagnosis(es) (1) Anemia Current Visit: No Status: Acute (2) Cecum mass Current Visit: No Status: Acute (3) Colon polyps Current Visit: No Status: Acute (4) Hypertension Current Visit: No Status: Acute (5) Malnutrition of moderate degree Current Visit: Yes Status: Acute Hospital Course: 81 years old female underwent open right hemicolectomy with primary anastomosis and open liver wedge biopsy. Patient did well in the postoperative period . She had acute on chronic blood loss anemia. She received 1 unit of packed RBC during the hospital stay. Patient at the time of discharge was tolerating regular diet. She was ambulating in hallways. She also had multiple bowel movements. Patient has dementia and short-term memory loss. She had poor oral intake prior to surgery and moderate to severe protein energy malnutrition with prealbumin of 3. Dietitian consultation was obtained. Patient was started on protein shakes in addition to regular diet. She experienced increase frequency of watery diarrhea. C. diff toxin was negative. Increase diarrhea caused dehydration and hypokalemia. This was treated with IV and oral potassium replacement. Patient stable at discharge Procedures: Open right hemicolectomy and wedge biopsy of liver Patient Condition at Discharge: Fair Plan - Discharge Summary New Discharge Prescriptions: New Diphenoxylate HCl/Atropine [Lomotil 2.5-0.025 mg Tablet] 1 each PO BID #10 tablet Discontinued amLODIPine [Norvasc] 5 mg PO BID Levofloxacin [Levaquin] 500 mg PO DAILY #7 tab No Action Metoprolol Tartrate [Lopressor] 100 mg PO BID Pantoprazole Sodium [Protonix] 40 mg PO DAILY #1 tablet. Discharge Medication List Metoprolol Tartrate [Lopressor] 100 mg PO BID 12/07/16 [History] Pantoprazole Sodium [Protonix] 40 mg PO DAILY #1 tablet. 12/11/16 [Rx] Diphenoxylate HCl/Atropine [Lomotil 2.5-0.025 mg Tablet] 1 each PO BID #10 tablet 12/28/16 [Rx] Follow up Appointment(s)/Referral(s): Catina Bonner MD [STAFF PHYSICIAN] - 01/07/17 Activity/Diet/Wound Care/Special Instructions: OK to shower. OK to use stairs. No heavy lifting more than 10 lbs for 6 weeks after surgery Apply clean dressing in lower part of the incision. Regular diet. Take Ensure/ Glucerna 1 bottle twice daily. Use oral tyelenol 325 mg po Q 6 hrly for pain. If pain not controlled, use Motrin 400 mg po q6hrly after meals. Discharge Disposition: TRANSFER TO SNF/ECF
[2016-12-29] MEDS: METOPROLOL TARTRATE 50 MG TAB PO SCH ×2 (09:14→20:39)
[2016-12-29] MEDS ORDERED: POTASSIUM CHLORIDE ORAL LIQUID 40 MEQ/30 ML CUP PO ONE (09:30)
[2016-12-29] MEDS: DIPHENOX-ATROP 2.5-0.025 MG 1 EACH TAB PO SCH ×3 (10:00→18:14)
[2016-12-29] MEDS: POTASSIUM CHLORIDE 10 MEQ, LIDOCAINE 2% INJ 10 MG in SODIUM CHLORIDE 0.9% 100 ML IVPB SCH ×2 (11:09→12:30)
--- NOTE | 2016-12-29 20:11 | P.EN ---
Patient was not discharged to [facility] today in spite of discharge orders at 7 am.After discussion with nurse Amanda at 8 pm, I was notified that the rehab does not accept patients on weekend. Weight Count Operator Dorothy Hernandez's note seen from 12/28. It states to call that facility today to facilitate transfer. Unclear if anyone made a phone call to the facility today.
[2016-12-29] MEDS: ACETAMINOPHEN TAB 325 MG TAB PO PRN (21:33)
[2016-12-30] MEDS: DIPHENOX-ATROP 2.5-0.025 MG 1 EACH TAB PO SCH ×3 (00:56→08:19)
[2016-12-30] MEDS: HEPARIN SODIUM,PORCINE 5,000 UNIT/ML 1 ML VIAL SQ SCH ×2 (00:57→08:19)
[2016-12-30 08:08] VITALS: BP 138/67; PULSE 90; RESP 16; TEMP 96.7
[2016-12-30] MEDS: METOPROLOL TARTRATE 50 MG TAB PO SCH (08:19)
[2016-12-30] MEDS: PANTOPRAZOLE 40 MG TABLET PO SCH (08:19)
[2016-12-30] MEDS: ACETAMINOPHEN TAB 325 MG TAB PO PRN ×2 (08:22→12:35)
[2016-12-30] MEDS: IBUPROFEN 400 MG TAB PO PRN (09:45)
--- NOTE | 2016-12-30 11:35 | P.PN ---
Subjective Principal diagnosis: abdominal pain improved. 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 We' ll repeat basic metabolic profile tomorrow. In patient's IV fluids are being changed to lactated Ringer's. Her heart rate improved. 12/26/2016 Patient did not move her bowels yet had abdominal pain is controlled, all narcotic and GC was discontinued her confusion improved and sodium improved. 12/28/2016 Patient started having diarrhea C. diff is being obtained today. Patient is Parrish tachycardic and patient was resumed back her her home dose of metoprolol. Will monitor overnight. 12/30/2016 Patient's diarrhea improved with symptomatic management C. diff was negative and patient is being discharged today I change Lomotil to when necessary. And patient is medically stable to be discharged. And patient is being discharged to subacute rehabilitation. Patient denied any significant abdominal pain, fever, dysuria, chest pain or shortness of breath, lightheadedness Objective - Vital Signs Vital signs: Vital Signs Temp 96.7 F L 12/30/16 07:00 Pulse 90 12/30/16 07:00 Resp 16 12/30/16 07:00 BP 138/67 12/30/16 07:00 Pulse Ox 96 12/30/16 07:47 Intake & Output 12/29/16 12/30/16 12/30/16 18:59 06:59 18:59 Intake Total 600 800 360 Output Total 600 2000 Balance 0 -1200 360 Intake: Intake, IV Titration 200 Amount Potassium Chloride 10 meq 100 Lidocaine 2% Inj 10 mg In Sodium Chloride 0.9% 100 ml @ 100 mls/hr IVPB Q1HR [facility] Rx#:[id number] Potassium Chloride 10 meq 100 Lidocaine 2% Inj 10 mg In Sodium Chloride 0.9% 100 ml @ 100 mls/hr IVPB Q1HR [facility]AN Rx#:[id number] Oral 400 800 360 Output: Urine 2000 Stool 600 Other: Voiding Method Toilet Toilet Toilet # Voids 4 4 # Bowel Movements 2 - Exam GENERAL: The patient is alert and oriented x3, not in any acute distress. Well developed, well nourished. HEENT: Pupils are round and equally reacting to light. EOMI. No scleral icterus. No conjunctival pallor. Normocephalic, atraumatic. No pharyngeal erythema. No thyromegaly. CARDIOVASCULAR: S1 and S2 present. No murmurs, rubs, or gallops. PULMONARY: Chest is clear to auscultation, no wheezing or crackles. ABDOMEN: bowel sounds present, postsurgically pack the surgical site area appears to be clean MUSCULOSKELETAL: No joint swelling or deformity. EXTREMITIES: No cyanosis, clubbing, or pedal edema. NEUROLOGICAL: Gross neurological examination did not reveal any focal deficits. SKIN: No rashes. - Labs CBC & Chem 7: 12/28/16 06:47 12/29/16 16:45 Assessment and Plan Plan: 1hyponatremia: Hypovolemic hyponatremia improved with IV fluids. 2 sinus tachycardia: Improved with resuming home dose of metoprolol. 3 hypertension and metoprolol can be restarted, hold off amlodipine to prevent perioperative hypotension related complications. 4 hypokalemia due to diarrhea which resolved after supplementation. 5 right hemicolectomy: Pain management and DVT prophylaxis per primary service. Patient has colon cancer. 6 diarrhea for which C. diff negative and patient's diarrhea improved. And patient is being discharged on when necessary Lomotil.
== END 2016-12-30 14:02 | DRG 329 ==
LOC: 2ORMAIN 10:02 → 3SUR 15:05
PROVIDERS: ADMIT Surgery; ATTEND Surgery
PROC: 0DNS0ZZ (ICD-10-PCS; principal; 2016-12-23 12:00)
PROC: 0FB20ZX Excision of Left Lobe Liver, Open Approach, Diagnostic (ICD-10-PCS; principal; 2016-12-23 12:00)
PROC: 0DTF0ZZ Resection of Right Large Intestine, Open Approach (ICD-10-PCS; principal; 2016-12-23 12:00)
DX: C18.2 Malignant neoplasm of ascending colon (principal); E43 Unspecified severe protein-calorie malnutrition; E22.2 Syndrome of inappropriate secretion of antidiuretic hormone; D50.0 Iron deficiency anemia secondary to blood loss (chronic); F03.90 Unspecified dementia, unspecified severity, without behavioral disturbance, psychotic disturbance, mood disturbance, and anxiety; E86.0 Dehydration; I45.10 Unspecified right bundle-branch block; F17.200 Nicotine dependence, unspecified, uncomplicated; D62 Acute posthemorrhagic anemia; E87.6 Hypokalemia; I10 Essential (primary) hypertension; Z79.899 Other long term (current) drug therapy; K66.0 Peritoneal adhesions (postprocedural) (postinfection)
CPT/HCPCS: 71010; 80048; 80051; 80053; 81001; 83735; 84132; 85025; 85027; 85610; 86850; 86900; 86901; 86920; 87324; 88307; 88309; 88341; 88342; 93005; 94760